=== PATIENT | male | born 1965 | race African-American/Black ===

== ENCOUNTER 2017-03-12 19:04 | Inpatient (IN) | payer OTHER ==
[~2017-03-12 19:04] MED LIST: ISOVUE-370 76%-LOCM 1 ML ONE
[2017-03-12] MEDS ORDERED: Fentanyl 100 MCG/2 ML VIAL ONE ×2 (19:21→19:25)
[2017-03-12] MEDS ORDERED: Midazolam HCl 5 mg/ml Vial ONE (19:27)
[2017-03-12] MEDS ORDERED: Fentanyl 20 MCG/ML 250 ML IVPB SCH (19:35)
[2017-03-12] MEDS ORDERED: Norepinephrine 8 MG/0.9% NS 0 ML ONE (20:00)
[2017-03-12 20:04] LABS: CO2 Tension 44.2 mmHg (35.0-45.0); pH, Arterial 7.24 (7.35-7.45)
[2017-03-12 20:05] LABS: Actual Bicarbonate (HCO3a) 18.3 mEq/L (22-26); Base Excess (BEa) -8.9 mEq/L (0 (+/-) 2.5); Hematocrit-ABG 46.1 % (42.0-52.0); Hemoglobin (Hb) 14.4 g/dL (14.0-18.0)
[2017-03-12 20:06] LABS: INR-International Normal Ratio 1.1; Prothrombin Time 14.4 SEC (12.0-14.7)
[2017-03-12 20:06] LABS: Analyzer IN Cardio ER; Calcium, Ionized 1.1 mmol/L (1.12-1.30); Puncture Site RRA
[2017-03-12 20:07] LABS: PTT 31.3 SEC (22.9-36.1)
[2017-03-12 20:18] LABS: #Eosinphils 0.3 thou/uL (0.0-0.7); #Lymphocytes 1.8 thou/uL (1.20-3.40); #Monocytes 0.2 thou/uL (0.11-0.59); #Neutrophils 9.2 thou/uL (1.40-6.50); %Basophils 0.4 % (0.0-1.0); %Eosinophils 2.4 % (0.0-10.0); %Lymphocytes 15.9 % (21.0-51.0); %Neutrophils 79.3 % (42.0-75.0); Hemoglobin 14.9 g/dL (14.0-18.0); Mean Corpuscular HGB CONC 31.6 g/dL (32.0-36.0); Mean Corpuscular Volume 98.2 fl (80.0-94.0); Mean Platelet Volume 8.1 fL (7.4-10.4); Platelet Count 212 thou/uL (130-400); RBC Distribution Width 13.6 % (11.5-14.5); Red Blood Cell (RBC) Count 4.79 mill/uL (4.70-6.10); White Blood Cell (WBC) Count 11.6 thou/uL (4.8-10.8)
[2017-03-12 20:24] LABS: ALT (SGPT) 42 U/L (8-55); AST (SGOT) 91 U/L (5-34); Albumin 4.2 g/dL (3.5-5.0); Alkaline Phosphatase 91 U/L (40-150); Anion Gap 18 mmol/L (10-20); BUN (Urea Nitrogen) 8 mg/dL (8.4-25.7); Bilirubin, Total 0.3 mg/dL (0.2-1.2); CK (CPK) 271 U/L (30-200); CKMB 4.4 ng/mL (0-6.6); Calc. Creatinine Clearance 0 mL/min (70-130); Calcium 8.3 mg/dL (7.8-10.44); Carbon Dioxide 20 mmol/L (22-29); Chloride 104 mmol/L (98-107); Estimated GFR-MDRD Greater than 90; Glucose 180 mg/dL (70-105); Magnesium 2.6 mg/dL (1.6-2.6); Potassium 3.2 mmol/L (3.5-5.1); Protein, Total 8.2 g/dL (6.0-8.3); Sodium 139 mmol/L (136-145); Troponin I 0.017 ng/mL (< 0.028)
--- NOTE | 2017-03-12 20:45 | RAD ---
CHEST PORTABLE SUPINE: History: 51-year-old male with history of endotracheal tube placement positioning following arrest. FINDINGS: The NG tube has been advanced and is in satisfactory position within the trachea with the tip approxi mately 6 cm from the level of the casey. There is some minimal increased density in the right retroc ardiac region. There is rotation to the right with some slight dextrocardia. This could represent tan e possible infiltrate or atelectasis in the right lower lobe. The left lung is clear. IMPRESSION: Some rotation to the right with some increased density in the right infrahilar region raising concern for some developing right lower lobe atelectasis. Mild dextrocardia. Endotracheal tube has been adva nced in satisfactory location. Unremarkable left chest. POS: [facility]
--- NOTE | 2017-03-12 21:10 | RAD ---
PORTABLE CHEST ONE VIEW: History: 51-year-old male with post right subclavian catheter placement evaluation. FINDINGS: Endotracheal tube in satisfactory location. There is a right subclavian catheter which is somewhat an gulated to the left side, possibly extending into the azygos vein. Heart size is within normal limits . There are some parenchymal change in the right lower lobe, evidence for right lower lobe pneumonia or partial atelectasis. There is no pneumothorax. IMPRESSION: Placement of a right subclavian catheter, the tip of which extends somewhat prominently to the left s sara, possibly within an azygos vein. Possibly pulling the catheter back a cm or so might allow for po sitioning within the superior vena cava. Parenchymal changes in the right lower lobe, evidence for so me right lower lobe pneumonia or partial atelectasis. POS: [facility]
[2017-03-12] MEDS ORDERED: STERILE WATER SLOW IVP SCH (21:30)
[2017-03-12] MEDS ORDERED: AMPICILLIN SLOW IVP SCH (21:30)
[2017-03-12] MEDS ORDERED: SULBACTAM SLOW IVP SCH (21:30)
[2017-03-12] MEDS ORDERED: Sterile Water 10 ML ONE (21:32)
[2017-03-12] MEDS ORDERED: Vecuronium 10 MG VIAL ONE (21:32)
[2017-03-12] MEDS ORDERED: metroNIDAZOLE 500 MG/100 ML BAG ONE (22:34)
[2017-03-12 22:35] LABS: Bilirubin Negative (Negative); Blood, Urine Negative (Negative); Clarity CLEAR (Clear); Glucose, Urine (Dipstick) Negative (Negative); Leukocyte Negative (Negative); Nitrite Negative (Negative); Protein, Urine (Dipstick) Negative (Neg-Trace); Specific Gravity, Urine 1.027 (1.002-1.036); Urobilinogen 0.2 mg/dL (0.2-1.0)
[2017-03-12 22:44] LABS: Amphetamine Not Detected (NotDetected); Barbiturates Screen Not Detected (NotDetected); Benzodiazepine Screen Not Detected (NotDetected); Cocaine Metabolite Screen Not Detected (NotDetected); Medtox Control Line Valid? VALID (VALID); Medtox Reader # READER 1; Methadone Not Detected (NotDetected); Methamphetamine Not Detected (NotDetected); Opiate Screen Not Detected (NotDetected); Oxycodone Screen Not Detected (NotDetected); Phencyclidine (PCP) Not Detected (NotDetected); THC/Cannabinoid Screen Not Detected (NotDetected); Tricyclic Screen Not Detected (NotDetected)
--- NOTE | 2017-03-12 22:48 | CT ---
BRAIN CT SCAN WITHOUT IV CONTRAST: History: 51-year-old male with post arrest foreign body airway obstruction. FINDINGS: There is some motion artifact. There is no evidence of mass or midline shift. No acute hemorrhage. Th ere are sinus mucosal changes. There appears to be a tube which is partially coiled within the pharyn x seen on the most caudal image consistent with a coiled NG tube. IMPRESSION: No mass or bleed or other significant acute intracranial process. Minimal sinus mucosal disease. The NG tube is coiled within the pharynx. POS: [facility]
--- NOTE | 2017-03-12 22:52 | CT ---
CHEST CTA WITH 3D RENDERING: History: 51-year-old male status arrest. History of foreign body in airway. FINDINGS: Endotracheal tube in position. There is a right subclavian catheter, the tip of which extends several cm into the left innominate vein. There is some alveolar parenchymal disease in the right lower lobe possibly representing some pneumonia, aspiration, or some degree of atelectasis. There is no CT evidence for acute PE. There is moderate gas and fluid distension of the stomach. No pleural effusion or pericardial effusion. Minimal pleural based parenchymal changes in the left lower lobe, probably some subsegmental atelectasis. IMPRESSION: No CT evidence for acute pulmonary embolism. Right subclavian catheter tip extends several cm into th e left innominate vein. Right lower lobe parenchymal change, evidence for pneumonia and/or atelectasi s and/or aspiration. Minimal pleural based parenchymal changes in the left base, probably minimal sub segmental atelectasis. POS: [facility]
[2017-03-12] MEDS ORDERED: Propofol 1,000 MG/100 ML VIAL IV ONE (23:06)
--- NOTE | 2017-03-12 23:26 | PDOC.EVN ---
Event Note - Event Note Event Note: [id number] H&P Dictated 1. Lactic acidosis 2. Acute respiratory failure 3. Respiratory arrest 4. Anion gap metabolic acidosis plan: see orders
[2017-03-12] MEDS ORDERED: Magnesium Sulfate 2 GM/100 ML BAG ONE (23:30)
[2017-03-12] MEDS ORDERED: Norepinephrine 8 MG/0.9% NS 250 ML ONE (23:30)
[2017-03-12 23:33] LABS: Troponin I 0.073 ng/mL (< 0.028)
[2017-03-12 23:50] LABS: Lactic Acid 3.3 mmol/L (0.5-2.2)
[2017-03-12] MEDS ORDERED: Acetaminophen 650 MG Suppository PR PRN (23:57)
[2017-03-12] MEDS ORDERED: Ondansetron HCl/PF 4 MG/2 ML Vial IVP PRN (23:57)
[2017-03-12 23:58] LABS: Base Excess-Venous -4.2 mmol/L (-30.0-30.0); Bicarbonate (HCO3v) 23.4 mmol/L (1.0-85.0); CO2 Tension (PvCO2) 51.4 mmHg (41.0-51.0); Calcium, Ionized 1.02 mmol/L (1.12-1.32); Hemoglobin - Calc 15.4 g/dL (12.0-18.0); Lactate 3.46 mmol/L (0.50-2.20); O2 Tension (PvO2) 39.6 mmHg (35.0-45.0); Potassium 3.5 mmol/L (3.4-4.7); pH (Venous) 7.266 (7.35-7.45)
[2017-03-13] MEDS ORDERED: Fentanyl 20 MCG/ML 250 ML IVPB SCH ×2 (00:15→03:37)
[2017-03-13] MEDS ORDERED: Calcium Chloride 1 GM/10 ML Abboject SYRINGE ONE (01:00)
[2017-03-13 01:32] LABS: Troponin I 0.075 ng/mL (< 0.028)
[2017-03-13 02:18] LABS: Troponin I 0.091 ng/mL (< 0.028)
[2017-03-13] MEDS ORDERED: Vecuronium 10 MG VIAL ONE (02:29)
[2017-03-13] MEDS ORDERED: Lorazepam 2 MG/ML VIAL SLOW IVP PRN (03:37)
[2017-03-13] MEDS ORDERED: Morphine 2 MG/ML SYRINGE IVP PRN (03:40)
[2017-03-13] MEDS ORDERED: Acetaminophen 1,000 MG in Premix Bag 1 BAG IVPB PRN (03:45)
[2017-03-13] MEDS ORDERED: Vecuronium 10 MG VIAL IV PRN (03:45)
[2017-03-13] MEDS ORDERED: DO NOT USE PRE-EXISTING LYTE PROTOCOL FS SCH (03:45)
[2017-03-13] MEDS ORDERED: Norepinephrine 8 MG/0.9% NS 250 ML IVPB SCH (03:45)
[2017-03-13] MEDS ORDERED: ALL FLUIDS SHOULD BE DEXTROSE FREE IF POSSIBLE FS SCH (03:45)
[2017-03-13 04:11] VITALS: BMI 21.5
[2017-03-13] MEDS: Piperacillin/Tazobactam 3.375 GM in Sodium Chloride 0.9% 100 ML IVPB SCH ×5 (04:21→22:01)
[2017-03-13] MEDS: Sodium Chloride 0.9% 1,000 ML IV SCH ×2 (04:26→16:59)
[2017-03-13 05:09] LABS: PTT 33.5 SEC (22.9-36.1); Prothrombin Time 13.6 SEC (12.0-14.7)
[2017-03-13 05:20] LABS: Lactic Acid 2.9 mmol/L (0.5-2.2)
[2017-03-13 05:27] LABS: Anion Gap 14 mmol/L (10-20); BUN (Urea Nitrogen) 6 mg/dL (8.4-25.7); Calc. Creatinine Clearance 130 mL/min (70-130); Carbon Dioxide 22 mmol/L (22-29); Chloride 105 mmol/L (98-107); Potassium 3.3 mmol/L (3.5-5.1); Sodium 138 mmol/L (136-145)
--- NOTE | 2017-03-13 05:27 | HP ---
DATE OF ADMISSION: 03/12/2017 CHIEF COMPLAINT: Respiratory failure. HISTORY OF PRESENT ILLNESS: The patient is a 51-year-old male with unknown past medical history. Th ere are no family members at the bedside at this time. The patient was found unresponsive at home an d EMS was called. Upon EMS arrival the patient was want to be respiratory arrest and the patient was found to have meat stuck in the throat so the patient had meat removed and the patient was intubated in the field and taken to the outside ER. From the outside ER the patient was transferred here. Th e patient is currently on the vent support and hypothymia protocol, so not able to get much history. According to the history given by the nurse and the ED physician there is no evidence of any cardiac arrest, there is no evidence of any chest compressions or shocks performed by the EMS. The patient was found to have pulse the entire time. PAST MEDICAL HISTORY: Unavailable. PAST SURGICAL HISTORY: Unavailable. SOCIAL HISTORY: Unavailable as the patient is on the vent support. REVIEW OF SYSTEMS: None available from the patient as he is on ventilator support. FAMILY HISTORY: Unknown, as the patient is on vent support. PHYSICAL EXAMINATION: CONSTITUTIONAL/VITAL SIGNS: At the time examination was performed, blood pressure is 150/100, pulse ox 97% on vent support, heart rate 87. GENERAL: This patient is lethargic, sedated and intubated. HEENT: Pupils sluggish. Ears patent. Nose normal. Positive for ET tube. NECK: Supple. No JVD. CHEST: Right subclavian catheter present. RESPIRATORY: Positive for rhonchi. No crackles. On vent support. CARDIOVASCULAR SYSTEM: S1, S2 present. No murmurs, no rubs, no gallops. Regular rate and rhythm. RESPIRATORY SYSTEM: Positive for rhonchi. GASTROINTESTINAL: Abdomen is soft, nontender, no guarding, no organomegaly, no masses felt. Right-s ided lower abdomen. GENITOURINARY: Positive for Garcia catheter. MUSCULOSKELETAL: No edema. NEURO: Cranial nerve system not able to assess as the patient is on vent support. PSYCHIATRIC: Unable to assess at this time. LABORATORY DATA: At the time of H&P performed; white count 11.6, hemoglobin 14.9, platelet count is 212. PT was 4.4, INR 1.1. Blood gas pH 7.4, pCO2 of 44, pO2 20. Bicarbonate is 18. Chemistries sh owed sodium 132, potassium 3.2, chloride is 104, CO2 of 20, BUN of 18.83, lactic acid 5.7. ASSESSMENT AND PLAN: The patient is a 51-year-old male. 1. Acute respiratory failure. Continue vent support. Plan to admit the patient to the ICU. The ER physician did notify Pulmonary. We will monitor the patient closely. 2. Possible aspiration. Plan to have the patient on broad spectrum antibiotics. Repeat CBC with di fferential and chest x-ray in the a.m. Monitor the patient closely. 3. Rule out ventricular tachycardia. EKG positive for some ST depressions. We will go ahead and co nsult Cardiology to evaluate the patient. We will check serial cardiac enzymes, check 2D echo. The patient is currently on hypothermia protocol. 4. Deep venous thrombosis and gastrointestinal prophylaxis; continue Lovenox and sequential compress ion devices. 5. Hypokalemia. Monitor potassium. Repeat BMP in a.m. Replace potassium per protocol. 6. Lactic acidosis. Monitor closely. Check serial lactic acid levels. 7. Anion gap metabolic acidosis. Monitor bicarbonate level closely. The case was discussed in detail with the patient.
[2017-03-13 05:28] LABS: Calcium 10.2 mg/dL (7.8-10.44); Estimated GFR-MDRD Greater than 90; Glucose 139 mg/dL (70-105); Magnesium 2.3 mg/dL (1.6-2.6); Phosphorus 2.5 mg/dL (2.3-4.7); Troponin I 0.103 ng/mL (< 0.028)
[2017-03-13] MEDS: Propofol 1,000 MG/100 ML VIAL IV PRN ×3 (06:10→23:48)
[2017-03-13 06:50] LABS: Hemoglobin 15.1 g/dL (14.0-18.0); Red Blood Cell (RBC) Count 4.99 mill/uL (4.70-6.10); White Blood Cell (WBC) Count 12.2 thou/uL (4.8-10.8)
[2017-03-13 06:51] LABS: Band 9 % (5-11); Eosinophils 1 % (0-10); Lymphocytes 20 % (21-51); MDiff Complete? YES; Mean Corpuscular HGB CONC 31.2 g/dL (32.0-36.0); Mean Corpuscular Hemoglobin 30.2 pg (27.0-31.0); Mean Platelet Volume 8.6 fL (7.4-10.4); Monocytes 3 % (0-10); Neutrophil 67 % (42-75); Platelet Count 193 thou/uL (130-400); RBC Distribution Width 13.8 % (11.5-14.5)
[2017-03-13 07:48] LABS: Base Excess (BEa) -2.3 mEq/L (0 (+/-) 2.5); CO2 Tension 59.1 mmHg (35.0-45.0); Calcium, Ionized 1.3 mmol/L (1.12-1.30); Hematocrit-ABG 48.3 % (42.0-52.0); Hemoglobin (Hb) 15.2 g/dL (14.0-18.0); O2 Tension (PaO2) 210.4 mmHg (80.0-100.0); pH, Arterial 7.26 (7.35-7.45)
[2017-03-13 07:56] LABS: ALV-art Gradient 75.725 (0-20); Puncture Site RRA
[2017-03-13 08:07] LABS: Troponin I 0.084 ng/mL (< 0.028)
--- NOTE | 2017-03-13 09:22 | PDOC.PN ---
- Subjective Encounter Start Date: 03/13/17 Encounter Start Time: 09:20 Subjective: intubated - Objective Resuscitation Status: Resuscitation Status FULL:Full Resuscitation MAR Reviewed: Yes Vital Signs & Weight: Vital Signs (12 hours) Temp Pulse Resp BP BP Pulse Ox 03/13/17 07:34 61 121/85 03/13/17 07:00 36.3 F L 03/13/17 06:00 34 F L 20 03/13/17 04:00 20 03/13/17 03:40 33.2 F L 56 L 20 156/101 H 03/13/17 03:30 33.2 F L 61 20 98 03/13/17 03:15 33.2 F L 53 L 20 156/101 H 100 Most Recent Monitor Data Heart Rate from ECG 59 NIBP 125/81 NIBP BP-Mean 85 Respiration from ECG 14 SpO2 99 I&O: 03/12/17 03/13/17 03/14/17 06:59 06:59 06:59 Intake Total 472 Output Total 1200 140 Balance -728 -140 Result Diagrams: 03/13/17 04:15 03/13/17 04:15 Phys Exam - Physical Examination Constitutional: NAD pupils pinpoint, dysconjugate eyes Respiratory: clear to auscultation bilateral Cardiovascular: RRR, no significant murmur Gastrointestinal: soft, non-tender, positive bowel sounds Musculoskeletal: no edema Neurological: non-focal Dx/Plan (1) Respiratory arrest Code(s): R09.2 - RESPIRATORY ARREST Status: Acute (2) Lactic acidosis Code(s): E87.2 - ACIDOSIS Status: Acute (3) Encephalopathy acute Code(s): G93.40 - ENCEPHALOPATHY, UNSPECIFIED Status: Acute - Plan ventilation support, discuss with front end software engineer -: will need neuro consult -: expaectant obs/ support * .
[2017-03-13] MEDS: Heparin 5,000 UNITS/ML VIAL SC SCH ×3 (09:42→21:13)
[2017-03-13 10:19] LABS: #Eosinphils 0.1 thou/uL (0.0-0.7); #Lymphocytes 1.3 thou/uL (1.20-3.40); #Monocytes 0.6 thou/uL (0.11-0.59); #Neutrophils 9.1 thou/uL (1.40-6.50); %Basophils 0.3 % (0.0-1.0); %Eosinophils 0.5 % (0.0-10.0); %Lymphocytes 11.5 % (21.0-51.0); %Monocytes 5.2 % (0.0-10.0); %Neutrophils 82.5 % (42.0-75.0); Hemoglobin 14.9 g/dL (14.0-18.0); Mean Corpuscular Hemoglobin 31.2 pg (27.0-31.0); Mean Corpuscular Volume 97.7 fl (80.0-94.0); Platelet Count 189 thou/uL (130-400); RBC Distribution Width 13.7 % (11.5-14.5); Red Blood Cell (RBC) Count 4.77 mill/uL (4.70-6.10)
[2017-03-13 10:27] LABS: Prothrombin Time 13.6 SEC (12.0-14.7)
[2017-03-13 10:30] LABS: Troponin I 0.098 ng/mL (< 0.028)
[2017-03-13 10:34] LABS: Anion Gap 14 mmol/L (10-20); BUN (Urea Nitrogen) 7 mg/dL (8.4-25.7); Calc. Creatinine Clearance 130 mL/min (70-130); Calcium 9.8 mg/dL (7.8-10.44); Carbon Dioxide 23 mmol/L (22-29); Chloride 105 mmol/L (98-107); Estimated GFR-MDRD Greater than 90; Glucose 77 mg/dL (70-105); Magnesium 2.2 mg/dL (1.6-2.6); Phosphorus 4.6 mg/dL (2.3-4.7); Potassium 4.4 mmol/L (3.5-5.1); Sodium 138 mmol/L (136-145)
--- NOTE | 2017-03-13 12:06 | PDOC.PULCN ---
Pulmonology Consult: HPI - Date of Consult Date: 03/13/17 Time: 12:05 - Consult Details Reason for Consult: Acute Respiratory failure Requesting Physician: Lissette Yeager - History of Present Illness HPI: FRANK DE LA FUENTE is a 51 year-old M who was intubated yesterday after choking on a piece of meat. He was put on hypothermia protocol. He is now awake and following commands. Pulmonology Consult: ROS - Review of Systems ROS unobtainable: due to endotracheal tube Pulmonology Consult: [facility] Past Medical History: none - Family History Family history: reviewed and not pertinent - Social History Smoking Status: Unknown if ever smoked Alcohol Use: other (unknown) Drug Use History: none Living Situation: independent Pulmonology Consult: Meds - Medications MAR Reviewed: Yes Medications: Current Medications Acetaminophen (Tylenol) 650 mg DE Q4H PRN PRN Reason: Headache/Fever or Pain Heparin Sodium (Porcine) (Heparin) 5,000 units SC TID [facility] Last Admin: 03/13/17 09:42 Dose: 5,000 units Fentanyl (Fentanyl Cadd) 250 mls @ 0 mls/hr IVPB INF LAURA; Titrate PRN Reason: Protocol Sodium Chloride (Normal Saline 0.9%) 1,000 mls @ 75 mls/hr IV .[id number] [facility] Last Admin: 03/13/17 04:26 Dose: 1,000 mls Norepinephrine Bitartrate (Levophed) 250 mls @ 0 mls/hr IVPB INF LAURA; As Directed PRN Reason: Protocol Acetaminophen 1,000 mg/ Device 100 mls @ 400 mls/hr IVPB Q6H PRN PRN Reason: DURING RE-WARMING: PRN T>98.6F Stop: 03/14/17 03:46 Fentanyl Citrate (Fentanyl Bolus) 250 mls @ 0 mls/hr IVPB PRN PRN; As Directed PRN Reason: Breakthrough pain Stop: 04/12/17 03:37 Piperacillin Sod/Tazobactam (Sod 3.375 gm/ Sodium Chloride) 100 mls @ 200 mls/ hr IVPB 0400,1000,1600,2200 [facility] [place] Last Admin: 03/13/17 09:46 Dose: 100 mls Lorazepam (Ativan) 2 mg SLOW IVP Q2H PRN PRN Reason: Anxiety to achieve Bueno 2-3 Stop: 04/12/17 03:37 Miscellaneous Information (Communication Order-Pharmacy) 1 each FS .CHECK IV FLUIDS LAURA Miscellaneous Information (Communication Order-Pharmacy) 1 each FS .COMMUNICATION LAURA Morphine Sulfate (Morphine) 2 mg IVP Q2H PRN PRN Reason: Breakthrough pain Ondansetron HCl (Zofran) 4 mg IVP Q6H PRN PRN Reason: Nausea/Vomiting Propofol (Diprivan) 1,000 mg IV INF PRN; Protocol PRN Reason: TO ACHIEVE BUENO SCORE 2-3 Stop: 04/12/17 03:37 Last Admin: 03/13/17 09:41 Dose: 1,000 mg Sodium Chloride (Flush - Normal Saline) 10 ml IVF PRN PRN PRN Reason: Saline Flush Vecuronium [place] (Norcuron) 10 mg IV Q30MIN PRN PRN Reason: SHIVERING Last Admin: 03/13/17 09:41 Dose: 10 mg - Allergies Allergies/Adverse Reactions: Allergies Allergy/AdvReac Type Severity Reaction Status Date / Time No Known Allergies Allergy Unverified 03/12/17 19:18 Pulmonology Consult: PE - Physical Exam HEENT: PERRLA, sclera anicteric, oral pharynx no lesions Neck: no nodes, no JVD, full ROM Cardiovascular: RRR, no significant murmur, no rub Respiratory: clear to auscultation anteriorly Gastrointestinal: soft, non-tender, positive bowel sounds Musculoskeletal: no edema, pulses present Neurological: non-focal, normal sensation, moves all 4 limbs Lymphatic: no nodes Skin: no rash, normal turgor Pulmonology Consult: Results - Labs Result Diagrams: 03/13/17 10:00 03/13/17 10:00 Lab results: Laboratory Results WBC 11.0 thou/uL (4.8-10.8) H 03/13/17 10:00 RBC 4.77 mill/uL (4.70-6.10) 03/13/17 10:00 Hgb 14.9 g/dL (14.0-18.0) 03/13/17 10:00 Hct 46.6 % (42.0-52.0) 03/13/17 10:00 POC Venous Hct 45.0 % (36-52) 03/12/17 23:51 MCV 97.7 fl (80.0-94.0) H 03/13/17 10:00 MCH 31.2 pg (27.0-31.0) H 03/13/17 10:00 MCHC 32.0 g/dL (32.0-36.0) 03/13/17 10:00 RDW 13.7 % (11.5-14.5) 03/13/17 10:00 Plt Count 189 thou/uL (130-400) 03/13/17 10:00 MPV 8.0 fL (7.4-10.4) 03/13/17 10:00 Neutrophils % 82.5 % (42.0-75.0) H 03/13/17 10:00 Neutrophils % (Manual) 67 % (42-75) 03/13/17 04:15 Band Neuts % (Manual) 9 % (5-11) 03/13/17 04:15 Lymphocytes % 11.5 % (21.0-51.0) L 03/13/17 10:00 Lymphocytes % (Manual) 20 % (21-51) L 03/13/17 04:15 Monocytes % 5.2 % (0.0-10.0) 03/13/17 10:00 Monocytes % (Manual) 3 % (0-10) 03/13/17 04:15 Eosinophils % 0.5 % (0.0-10.0) 03/13/17 10:00 Eosinophils % (Manual) 1 % (0-10) 03/13/17 04:15 Basophils % 0.3 % (0.0-1.0) 03/13/17 10:00 Neutrophils # 9.1 thou/uL (1.40-6.50) H 03/13/17 10:00 Lymphocytes # 1.3 thou/uL (1.20-3.40) 03/13/17 10:00 Monocytes # 0.6 thou/uL (0.11-0.59) H 03/13/17 10:00 Eosinophils # 0.1 thou/uL (0.0-0.7) 03/13/17 10:00 Basophils # 0.0 thou/uL (0.0-0.2) 03/13/17 10:00 PT 13.6 SEC (12.0-14.7) 03/13/17 10:00 INR 1.0 03/13/17 10:00 APTT 31.0 SEC (22.9-36.1) 03/13/17 10:00 Specimen Type ARTERIAL 03/13/17 03:30 Puncture Site RRA 03/13/17 03:30 Bicarbonate Actual 26.0 mEq/L (22-26) 03/13/17 03:30 POC Bicarbonate Calc 23.4 mmol/L (1.0-85.0) 03/12/17 23:51 ABG pH 7.26 (7.35-7.45) L 03/13/17 03:30 ABG pCO2 59.1 mmHg (35.0-45.0) H 03/13/17 03:30 ABG pO2 210.4 mmHg (80.0-100.0) H 03/13/17 03:30 ABG O2 Sat Calc/Suzy 99.4 % (94.0-100.0) 03/13/17 03:30 ABG O2 Content 21.4 vol% (17.5-23.0) 03/13/17 03:30 ABG Base Excess -2.3 mEq/L (0 (+/-) 2.5) 03/13/17 03:30 ABG Hematocrit 48.3 % (42.0-52.0) 03/13/17 03:30 ABG Hemoglobin 15.2 g/dL (14.0-18.0) 03/13/17 03:30 ABG Oxyhemoglobin 97.7 % (94.0-97.0) H 03/13/17 03:30 ABG Carboxyhemoglobin 1.2 gm% (0.0-3.0) 03/13/17 03:30 ABG Methemoglobin 0.5 gm% (0.0-1.5) 03/13/17 03:30 ABG Deoxyhemoglobin 0.6 % (0.0-5.0) 03/13/17 03:30 Santos Test POSITIVE 03/13/17 03:30 POC VBG pH 7.266 (7.35-7.45) L 03/12/17 23:51 VBG pCO2 51.4 mmHg (41.0-51.0) H 03/12/17 23:51 VBG pO2 39.6 mmHg (35.0-45.0) 03/12/17 23:51 POC VBG CO2 (Calc) 25.0 mmol/L (1.0-85.0) 03/12/17 23:51 POC VBG O2 Sat (Calc) 66.0 % (0.0-100.0) 03/12/17 23:51 POC VBG Hemoglobin Calc 15.4 g/dL (12.0-18.0) 03/12/17 23:51 A-a O2 Gradient 75.725 (0-20) H 03/13/17 03:30 Sodium 140 mmol/L (135-148) 03/13/17 03:30 Potassium 4.6 mmol/L (3.70-5.30) 03/13/17 03:30 Chloride 102 mmol/L (98-106) 03/13/17 03:30 Ionized Calcium 1.3 mmol/L (1.12-1.30) 03/13/17 03:30 Mode of Support SIMV/PSV 03/13/17 03:30 Mechanical Rate 20 min 03/13/17 03:30 Inspired O2 50 % 03/13/17 03:30 Tidal Volume 500 ml 03/13/17 03:30 Pressure Support 10 cmH2O 03/13/17 03:30 PEEP or CPAP 5.0 cmH2O 03/13/17 03:30 POC Venous Sodium 143.0 mmol/L (138-145) 03/12/17 23:51 Sodium 138 mmol/L (136-145) 03/13/17 10:00 POC Venous Potassium 3.5 mmol/L (3.4-4.7) 03/12/17 23:51 Potassium 4.4 mmol/L (3.5-5.1) 03/13/17 10:00 POC Venous Chloride 107.0 mmol/L (98-113) 03/12/17 23:51 Chloride 105 mmol/L (98-107) 03/13/17 10:00 Carbon Dioxide 23 mmol/L (22-29) 03/13/17 10:00 Anion Gap 14 mmol/L (10-20) 03/13/17 10:00 POC Jose Guadalupe Anion Gap Calc 13 mmol/L (-14-95) 03/12/17 23:51 BUN 7 mg/dL (8.4-25.7) L 03/13/17 10:00 Creatinine 0.67 mg/dL (0.6-1.3) 03/13/17 10:00 POC Venous Creatinine 0.64 mg/dL (0.60-1.30) 03/12/17 23:51 POC eGFR Amer Greater than 60 12 23:51 POC eGFR Non-Afric Amer Greater than 60 03/12/17 23:51 Estimated GFR (MDRD) Greater than 90 03/13/17 10:00 Glucose 77 mg/dL (70-105) 03/13/17 10:00 POC Venous Glucose 210.0 mg/dL (70-105) H 03/12/17 23:51 Lactic Acid 2.9 mmol/L (0.5-2.2) H 03/13/17 04:15 POC Venous Lactate 3.46 mmol/L (0.50-2.20) H 03/12/17 23:51 Calcium 9.8 mg/dL (7.8-10.44) 03/13/17 10:00 POC Venous Ion Calcium 1.02 mmol/L (1.12-1.32) L 03/12/17 23:51 Phosphorus 4.6 mg/dL (2.3-4.7) 03/13/17 10:00 Magnesium 2.2 mg/dL (1.6-2.6) 03/13/17 10:00 Total Bilirubin 0.3 mg/dL (0.2-1.2) 03/12/17 19:40 AST 91 U/L (5-34) H 03/12/17 19:40 ALT 42 U/L (8-55) 03/12/17 19:40 Alkaline Phosphatase 91 U/L (40-150) 03/12/17 19:40 Creatine Kinase 271 U/L (30-200) H 03/12/17 19:40 CK-MB (CK-2) 26.0 ng/mL (0-6.6) H* 03/13/17 10:00 Troponin I 0.098 ng/mL (< 0.028) H 03/13/17 10:00 B-Natriuretic Peptide 79.4 pg/mL (0-100) 03/12/17 19:40 Serum Total Protein 8.2 g/dL (6.0-8.3) 03/12/17 19:40 Albumin 4.2 g/dL (3.5-5.0) 03/12/17 19:40 Globulin 4.0 g/dL (2.4-3.5) H 03/12/17 19:40 Albumin/Globulin Ratio 1.1 g/dL (1.2-2.2) L 03/12/17 19:40 Urine Color YELLOW (Yellow) 03/12/17 22:00 Urine Clarity CLEAR (Clear) 03/12/17 22:00 Urine pH 6.0 (5.0-9.0) 03/12/17 22:00 Ur Specific [place] 1.027 (1.002-1.036) 03/12/17 22:00 Urine Protein Negative mg/dL (Neg-Trace) 03/12/17 22:00 Urine Glucose (UA) Negative mg/dL (Negative) 03/12/17 22:00 Urine Ketones Negative mg/dL (Negative) 03/12/17 22:00 Urine Blood Negative (Negative) 03/12/17 22:00 Urine Nitrite Negative (Negative) 03/12/17 22:00 Urine Bilirubin Negative (Negative) 03/12/17 22:00 Urine Urobilinogen 0.2 mg/dL (0.2-1.0) 03/12/17 22:00 Ur Leukocyte Esterase Negative (Negative) 03/12/17 22:00 Urine Opiates Screen Not Detected (NotDetected) 03/12/17 22:00 Ur Oxycodone Screen Not Detected (NotDetected) 03/12/17 22:00 Urine Methadone Screen Not Detected (NotDetected) 03/12/17 22:00 Ur Propoxyphene Screen Not Detected (NotDetected) 03/12/17 22:00 Ur Barbiturates Screen Not Detected (NotDetected) 03/12/17 22:00 Ur Tricyclics Screen Not Detected (NotDetected) 03/12/17 22:00 Ur Phencyclidine Scrn Not Detected (NotDetected) 03/12/17 22:00 Ur Amphetamines Screen Not Detected (NotDetected) 03/12/17 22:00 U Methamphetamines Scrn Not Detected (NotDetected) 03/12/17 22:00 U Benzodiazepines Scrn Not Detected (NotDetected) 03/12/17 22:00 U Cocaine Metab Screen Not Detected (NotDetected) 03/12/17 22:00 U Cannabinoids Screen Not Detected (NotDetected) 03/12/17 22:00 Drug Screen Comment () 03/12/17 22:00 - ABG Interpretation ABG Results: POC Bicarbonate Calc 23.4 mmol/L (1.0-85.0) 03/12/17 23:51 ABG pH 7.26 (7.35-7.45) L 03/13/17 03:30 ABG pCO2 59.1 mmHg (35.0-45.0) H 03/13/17 03:30 ABG O2 Sat Calc/Suzy 99.4 % (94.0-100.0) 03/13/17 03:30 ABG Base Excess -2.3 mEq/L (0 (+/-) 2.5) 03/13/17 03:30 Interpretation: respiratory acidosis - Radiology Interpretation Chest x-ray Status: image reviewed by me Additional comments: RLL infiltrate central line turning back toward left Pulmonology Consult: A/P - Problem (1) Choking due to food in larynx Current Visit: Yes Code(s): T17.320A - FOOD IN LARYNX CAUSING ASPHYXIATION, INITIAL ENCOUNTER Status: Acute (2) Acute respiratory failure with hypercapnia Current Visit: Yes Code(s): J96.02 - ACUTE RESPIRATORY FAILURE WITH HYPERCAPNIA Status: Acute - Time Time: 50% of the time was spent in coordination of care (as documented) at patient's floor/unit and/or counseling patient. Time with Patient: greater than 50 minutes (35 minutes direct CC time) - Plan Plan: Patient now following, therefore begin rewarming wean levophed dc central line once levophed is off adjusted vent rate for respiratory acidosis
[2017-03-13 16:06] LABS: #Eosinphils 0.1 thou/uL (0.0-0.7); #Lymphocytes 1.5 thou/uL (1.20-3.40); #Monocytes 0.7 thou/uL (0.11-0.59); #Neutrophils 8.4 thou/uL (1.40-6.50); %Basophils 0.3 % (0.0-1.0); %Eosinophils 0.9 % (0.0-10.0); %Lymphocytes 14.3 % (21.0-51.0); %Monocytes 6.1 % (0.0-10.0); %Neutrophils 78.4 % (42.0-75.0); Hemoglobin 14.3 g/dL (14.0-18.0); Mean Corpuscular HGB CONC 32.8 g/dL (32.0-36.0); Mean Corpuscular Hemoglobin 31.7 pg (27.0-31.0); Mean Corpuscular Volume 96.6 fl (80.0-94.0); Mean Platelet Volume 8.1 fL (7.4-10.4); Platelet Count 181 thou/uL (130-400); RBC Distribution Width 13.6 % (11.5-14.5); Red Blood Cell (RBC) Count 4.52 mill/uL (4.70-6.10); White Blood Cell (WBC) Count 10.7 thou/uL (4.8-10.8)
[2017-03-13 16:12] LABS: INR-International Normal Ratio 1.1; PTT 34.9 SEC (22.9-36.1); Prothrombin Time 14.2 SEC (12.0-14.7)
[2017-03-13 16:30] LABS: Anion Gap 12 mmol/L (10-20); BUN (Urea Nitrogen) 8 mg/dL (8.4-25.7); Calc. Creatinine Clearance 116 mL/min (70-130); Calcium 8.9 mg/dL (7.8-10.44); Carbon Dioxide 25 mmol/L (22-29); Chloride 104 mmol/L (98-107); Estimated GFR-MDRD Greater than 90; Glucose 83 mg/dL (70-105); Magnesium 1.9 mg/dL (1.6-2.6); Phosphorus 2.6 mg/dL (2.3-4.7); Potassium 3.9 mmol/L (3.5-5.1); Sodium 137 mmol/L (136-145); Troponin I 0.091 ng/mL (< 0.028)
[2017-03-13 16:36] LABS: CKMB 29.3 ng/mL (0-6.6)
[2017-03-13] MEDS: Famotidine/PF 20 mg/2ml Vial SLOW IVP SCH (21:13)
[2017-03-13 22:18] LABS: #Basophils 0.1 thou/uL (0.0-0.2); #Eosinphils 0.2 thou/uL (0.0-0.7); #Lymphocytes 2.1 thou/uL (1.20-3.40); #Monocytes 0.6 thou/uL (0.11-0.59); #Neutrophils 7.7 thou/uL (1.40-6.50); %Basophils 0.8 % (0.0-1.0); %Eosinophils 1.9 % (0.0-10.0); %Lymphocytes 19.7 % (21.0-51.0); %Monocytes 5.3 % (0.0-10.0); %Neutrophils 72.3 % (42.0-75.0); Mean Corpuscular Hemoglobin 32.7 pg (27.0-31.0); Mean Platelet Volume 7.9 fL (7.4-10.4); Platelet Count 175 thou/uL (130-400); RBC Distribution Width 13.5 % (11.5-14.5); Red Blood Cell (RBC) Count 4.27 mill/uL (4.70-6.10); White Blood Cell (WBC) Count 10.6 thou/uL (4.8-10.8)
[2017-03-13 22:26] LABS: INR-International Normal Ratio 1.1; PTT 43.1 SEC (22.9-36.1); Prothrombin Time 14.8 SEC (12.0-14.7)
[2017-03-13 22:39] LABS: Anion Gap 11 mmol/L (10-20); BUN (Urea Nitrogen) 10 mg/dL (8.4-25.7); Calc. Creatinine Clearance 104 mL/min (70-130); Calcium 8.6 mg/dL (7.8-10.44); Carbon Dioxide 26 mmol/L (22-29); Chloride 104 mmol/L (98-107); Estimated GFR-MDRD Greater than 90; Glucose 89 mg/dL (70-105); Magnesium 1.8 mg/dL (1.6-2.6); Phosphorus 2.1 mg/dL (2.3-4.7); Potassium 3.5 mmol/L (3.5-5.1); Sodium 137 mmol/L (136-145)
[2017-03-13 22:45] LABS: Troponin I 0.082 ng/mL (< 0.028)
[2017-03-13 22:46] LABS: Critical Call CKMBM RESULT DECREASING
[2017-03-14] MEDS: Piperacillin/Tazobactam 3.375 GM in Sodium Chloride 0.9% 100 ML IVPB SCH ×4 (05:13→21:27)
[2017-03-14] MEDS: Propofol 1,000 MG/100 ML VIAL IV PRN (05:13)
[2017-03-14] MEDS: Sodium Chloride 0.9% 1,000 ML IV SCH ×2 (05:13→16:09)
[2017-03-14 06:18] LABS: #Basophils 0.1 thou/uL (0.0-0.2); #Eosinphils 0.4 thou/uL (0.0-0.7); #Lymphocytes 2.9 thou/uL (1.20-3.40); #Monocytes 0.7 thou/uL (0.11-0.59); #Neutrophils 7.1 thou/uL (1.40-6.50); %Basophils 1.1 % (0.0-1.0); %Eosinophils 3.2 % (0.0-10.0); %Lymphocytes 25.9 % (21.0-51.0); %Monocytes 5.9 % (0.0-10.0); Hemoglobin 13.2 g/dL (14.0-18.0); Mean Corpuscular HGB CONC 33.3 g/dL (32.0-36.0); Mean Corpuscular Hemoglobin 31.9 pg (27.0-31.0); Mean Corpuscular Volume 95.8 fl (80.0-94.0); Mean Platelet Volume 8.6 fL (7.4-10.4); Platelet Count 182 thou/uL (130-400); RBC Distribution Width 13.4 % (11.5-14.5); Red Blood Cell (RBC) Count 4.15 mill/uL (4.70-6.10); White Blood Cell (WBC) Count 11.1 thou/uL (4.8-10.8)
[2017-03-14 06:37] LABS: Anion Gap 11 mmol/L (10-20); BUN (Urea Nitrogen) 10 mg/dL (8.4-25.7); Calc. Creatinine Clearance 102 mL/min (70-130); Calcium 8.5 mg/dL (7.8-10.44); Carbon Dioxide 26 mmol/L (22-29); Chloride 105 mmol/L (98-107); Estimated GFR-MDRD Greater than 90; Glucose 82 mg/dL (70-105); Potassium 3.3 mmol/L (3.5-5.1); Sodium 139 mmol/L (136-145)
[2017-03-14 08:14] LABS: Actual Bicarbonate (HCO3a) 22.9 mEq/L (22-26); Base Excess (BEa) 0.7 mEq/L (0 (+/-) 2.5); CO2 Tension 29.8 mmHg (35.0-45.0); Calcium, Ionized 1.1 mmol/L (1.12-1.30); Hematocrit-ABG 41.7 % (42.0-52.0); O2 Tension (PaO2) 188.4 mmHg (80.0-100.0)
[2017-03-14 08:15] LABS: Puncture Site RBA
[2017-03-14] MEDS ORDERED: DC Sedation Protocol FS ONE (08:35)
[2017-03-14] MEDS ORDERED: CCU Electrolyte Replacement 1 EACH FS ONE (08:39)
--- NOTE | 2017-03-14 08:46 | RAD ---
SINGLE VIEW CHEST: Date: 03/14/17 COMPARISON: 03/12/17. HISTORY: Ventilated patient with respiratory failure. FINDINGS: Single view of the chest shows normal sized cardiomediastinal silhouette. The endotracheal tube is un changed in position. The central venous catheter has been withdrawn with its tip in the superior vena cava. There is no evidence of consolidation, mass, or pleural effusion. IMPRESSION: 1. No evidence of acute cardiopulmonary process. 2. Appropriate position of lines and tubes. POS: [facility]
[2017-03-14] MEDS ORDERED: Potassium Phosphate 15 MMOL in Sodium Chloride 0.9% 250 ML 250 ML IV PRN (08:57)
[2017-03-14] MEDS ORDERED: Potassium Chloride 20 MEQ TAB PO PRN (08:57)
[2017-03-14] MEDS ORDERED: Magnesium 2 GM/NS 0.9% 100 ML 2 GM in Premix Bag 1 BAG IVPB PRN (08:57)
[2017-03-14] MEDS ORDERED: Potassium Chloride 40 MEQ in Sodium Chloride 0.9% 250 ML 250 ML IVPB PRN (08:57)
[2017-03-14] MEDS ORDERED: Magnesium Oxide 400 MG TAB PO PRN ×2 (08:57)
[2017-03-14] MEDS ORDERED: Potassium Phosphate 9 MMOL in Sodium Chloride 0.9% 100 ML IVPB PRN (08:57)
[2017-03-14] MEDS ORDERED: CCU ELECTROLYTE REPLACEMENT PROTOCOL FS PRN (08:57)
[2017-03-14] MEDS ORDERED: Potassium Phosphate 12 MMOL in Sodium Chloride 0.9% 250 ML 250 ML IV PRN (08:57)
[2017-03-14] MEDS ORDERED: Potassium Chloride 40 MEQ in Premix Bag 1 BAG IVPB PRN (08:57)
--- NOTE | 2017-03-14 08:58 | PRG ---
DATE OF SERVICE: 03/14/2017 Thirty-five minutes critical care time. Mr. Bowser remains intubated on mechanical ventilation. He will wake up when sedation is off and t ry to follow commands. PHYSICAL EXAMINATION: VITAL SIGNS: His temperature is 98.6, pulse 63, blood pressure 92/60, 24 intake 2675, output 1935. HEENT: He has injected sclerae. Pupils react. Oropharynx is clear. NECK: Without adenopathy, JVD, or bruits. LUNGS: Clear to auscultation without wheezing. CARDIAC: S1, S2 regular, without murmur. ABDOMEN: Soft and nontender. EXTREMITIES: No clubbing, cyanosis, or edema. NEUROLOGIC: Grossly intact throughout. LABORATORY DATA: PH 7.50, pCO2 of 29, pO2 188 on SIMV rate 20, tidal volume 500, PEEP 5, pressure mitchell pport 10, FiO2 40%. White blood cell count 11.1, hematocrit 39.8, platelet count 182. Sodium 139, p otassium 3.3, chloride 105, CO2 of 26, BUN 10, creatinine 0.8, glucose 82. Chest x-ray shows no mass , effusion or infiltrate. ASSESSMENT: 1. Choking due to food in larynx. 2. Acute respiratory failure requiring mechanical ventilation. PLAN: The patient will be extubated. His Levophed will be turned off. His potassium will be replac ed. Hopefully, he can be transferred out of the ICU by tomorrow.
--- NOTE | 2017-03-14 09:42 | PDOC.PN ---
- Subjective Encounter Start Date: 03/14/17 Encounter Start Time: 09:41 Subjective: awake , nonverbal - Objective Resuscitation Status: Resuscitation Status FULL:Full Resuscitation MAR Reviewed: Yes Vital Signs & Weight: Vital Signs (12 hours) Temp Pulse Resp Pulse Ox 03/14/17 09:05 105 H 10 L 92 L 03/14/17 08:00 18 03/14/17 07:00 100.9 F H 03/14/17 04:00 98.6 F 25 H 03/14/17 02:00 25 H 03/14/17 00:00 99.9 F H 25 H 03/13/17 22:00 99.2 F 25 H Most Recent Monitor Data Heart Rate from ECG 96 NIBP 115/88 NIBP BP-Mean 95 Respiration from ECG 13 SpO2 98 I&O: 03/13/17 03/14/17 03/15/17 06:59 06:59 06:59 Intake Total 472 2675.2 Output Total 1200 1935 120 Balance -728 740.2 -120 Result Diagrams: 03/14/17 03:57 03/14/17 03:57 Phys Exam - Physical Examination Constitutional: NAD Neck: no JVD Respiratory: clear to auscultation bilateral Cardiovascular: RRR, no significant murmur Gastrointestinal: soft, non-tender Musculoskeletal: no edema Neurological: non-focal Dx/Plan (1) Respiratory arrest Code(s): R09.2 - RESPIRATORY ARREST Status: Acute (2) Lactic acidosis Code(s): E87.2 - ACIDOSIS Status: Acute (3) Encephalopathy acute Code(s): G93.40 - ENCEPHALOPATHY, UNSPECIFIED Status: Acute (4) NSTEMI (non-ST elevated myocardial infarction) Code(s): I21.4 - NON-ST ELEVATION (NSTEMI) MYOCARDIAL INFARCTION Status: Acute - Plan encephalopathy, anoxic? -: off pressors, extubated -: expectant obs, nutrition * .
[2017-03-14] MEDS: Famotidine/PF 20 mg/2ml Vial SLOW IVP SCH ×2 (10:34→21:13)
[2017-03-14] MEDS: Heparin 5,000 UNITS/ML VIAL SC SCH ×3 (10:34→21:13)
[2017-03-14] MEDS ORDERED: FLU VACC QS2017-18 36 mo. & older 0.5 ML SYRINGE IM ONE (21:00)
[2017-03-15] MEDS: Sodium Chloride 0.9% 1,000 ML IV SCH (00:15)
[2017-03-15 01:26] LABS: Magnesium 2.1 mg/dL (1.6-2.6)
[2017-03-15] MEDS: Piperacillin/Tazobactam 3.375 GM in Sodium Chloride 0.9% 100 ML IVPB SCH (03:48)
[2017-03-15 04:52] LABS: Anion Gap 9 mmol/L (10-20); BUN (Urea Nitrogen) 11 mg/dL (8.4-25.7); Calc. Creatinine Clearance 110 mL/min (70-130); Calcium 8.9 mg/dL (7.8-10.44); Carbon Dioxide 28 mmol/L (22-29); Chloride 106 mmol/L (98-107); Estimated GFR-MDRD Greater than 90; Glucose 112 mg/dL (70-105); Potassium 3.8 mmol/L (3.5-5.1); Sodium 139 mmol/L (136-145)
--- NOTE | 2017-03-15 09:14 | PRG ---
DATE OF SERVICE: 03/15/2017 He has made a remarkable improvement since yesterday. He is awake, alert, oriented, moving around wi thout difficulty. PHYSICAL EXAMINATION: VITAL SIGNS: Temperature is 98.8, pulse 77, blood pressure 106/73, 24-hour intake 2906, output 1278. HEENT: Unremarkable. NECK: No JVD. LUNGS: Clear without wheezing. CARDIOVASCULAR: S1, S2 regular. ABDOMEN: Soft and nontender. EXTREMITIES: No clubbing, cyanosis, or edema. NEUROLOGIC: Nonfocal. LABORATORY DATA: Sodium 139, potassium 3.8, chloride 106, CO2 20, BUN 11, creatinine 0.7, glucose 11 2. ASSESSMENT: 1. Status post choking episode. 2. Status post acute respiratory failure requiring mechanical ventilation. 3. Aspiration pneumonitis. 4. Deconditioning. PLAN: The patient can be transferred to the medical floor. We will start physical therapy. Hopeful ly, he can be discharged soon. Speech is evaluating the patient and is making recommendations in reg ards to diet.
[2017-03-15] MEDS: Heparin 5,000 UNITS/ML VIAL SC SCH ×3 (09:19→20:37)
[2017-03-15] MEDS: Amoxicillin/Potassium Clav 500 MG TAB PO SCH ×2 (09:19→20:37)
--- NOTE | 2017-03-15 11:38 | PDOC.PN ---
- Subjective Encounter Start Date: 03/15/17 Encounter Start Time: 11:37 Subjective: awake, alert, appropriate - Objective Resuscitation Status: Resuscitation Status FULL:Full Resuscitation MAR Reviewed: Yes Vital Signs & Weight: Vital Signs (12 hours) Temp Pulse Resp Pulse Ox 03/15/17 10:10 98.8 F 78 22 H 99 03/15/17 08:00 98.8 F 78 22 H 94 L 03/15/17 07:00 98.8 F 03/15/17 04:00 98.8 F 03/15/17 00:00 98.6 F Weight Weight 158 lb 11.725 oz Most Recent Monitor Data Heart Rate from ECG 88 NIBP 119/79 NIBP BP-Mean 89 Respiration from ECG 16 SpO2 91 I&O: 03/14/17 03/15/17 03/16/17 06:59 06:59 06:59 Intake Total 2675.2 2906 580 Output Total 1935 1278 175 Balance 740.2 1628 405 Result Diagrams: 03/14/17 03:57 03/15/17 03:46 Additional Labs: Accuchecks 03/14/17 23:18 POC Glucose 62 L Phys Exam - Physical Examination Constitutional: NAD Neck: no JVD Respiratory: clear to auscultation bilateral Cardiovascular: RRR, no significant murmur Gastrointestinal: soft, positive bowel sounds Musculoskeletal: no edema Neurological: non-focal, moves all 4 limbs Dx/Plan (1) Respiratory arrest Code(s): R09.2 - RESPIRATORY ARREST Status: Resolved (2) Lactic acidosis Code(s): E87.2 - ACIDOSIS Status: Resolved (3) Encephalopathy acute Code(s): G93.40 - ENCEPHALOPATHY, UNSPECIFIED Status: Resolved (4) NSTEMI (non-ST elevated myocardial infarction) Code(s): I21.4 - NON-ST ELEVATION (NSTEMI) MYOCARDIAL INFARCTION Status: Acute - Plan doing well. speech tx, PT,OT -: amazing recovery * .
[2017-03-16 08:10] VITALS: BP 121/82; TEMP 98.6
[2017-03-16] MEDS: Heparin 5,000 UNITS/ML VIAL SC SCH (09:34)
[2017-03-16] MEDS: Amoxicillin/Potassium Clav 500 MG TAB PO SCH (09:34)
--- NOTE | 2017-03-16 10:25 | PRG ---
DATE OF SERVICE: 03/16/2017 SUBJECTIVE: He feels better. He is up walking around, has no complaints. PHYSICAL EXAMINATION: VITAL SIGNS: Temperature 98.6, pulse 70, respiration 16, O2 sat 97%, blood pressure 121/82. HEENT: Unremarkable. NECK: No JVD. CHEST: Clear without wheezing. CARDIAC: S1 and S2 regular. ABDOMEN: Soft. EXTREMITIES: No edema. ASSESSMENT: 1. Status post choking episode. 2. Status post respiratory failure. 3. Aspiration event. PLAN: He has recovered and I think he could go home. Speech has seen him and made recommendations r egarding swallowing. I would stop Augmentin after 7 days. I will sign off. Please recall if furthe r assistance needed.
--- NOTE | 2017-03-16 12:47 | DIS ---
DATE OF ADMISSION: 03/12/2017 DATE OF DISCHARGE: 03/16/2017 Surgical admission for Bev. DISCHARGE DISPOSITION: Home. FINAL DIAGNOSES: Choking due to food and larynx; respiratory arrest; acute encephalopathy, resolved; non-ST elevation myocardial infarction; lactic acidosis, resolved; acute respiratory failure with hy percapnia, resolved. DISCHARGE MEDICATIONS: Augmentin 500, #14, one twice a day for 7 days. ALLERGIES: None. PENDING AT THE TIME OF DISCHARGE: Nothing. CODE STATUS: FULL. HOSPITAL COURSE: The patient admitted to [facility]. [facility] Hospitalist Service found unresponsive at home and found to have meat stuck in his throat. He was intubated after the r emoval of the meat, transferred to [facility] on vent support. Hypothermic protocol. Placed in the intensive care unit. Dr. Keyshawn Rodriguez saw him in consultation. On 03/13/2017, he was awake, follow ing commands mildly. He rapidly progressed and he is now awake and alert. Vital signs are stable. Chest is clear. Heart has regular rate and rhythm. His toxicology was unremarkable. Admitting hemo globin 15.1, white count 12.2, platelet count 193,000. INR was 1.1. Initial blood gas revealed a pH of 7.24 with a 44 CO2, this improved steadily during his hospital stay. Initial comp metabolic prof ile revealed a sodium 138, potassium 3.3, chloride 105, CO2 22, BUN 6, creatinine 0.67. Liver functi on tests are unremarkable. Lactic acid was 2.9. His troponins were modestly elevated at 0.09, 0.1, 0.04. The patient has improved dramatically. As I said before, he is stable. Blood pressure 121/82 , pulse 70, respirations 16. He is alert, oriented, and cooperative. Desires going home. He had no procedures done. Dr. Rodriguez recommended given him 7 more days of amoxicillin as there is no defini te evidence of pneumonia. His chest x-ray done on 03/14/2017 shows a normal cardiac silhouette with no infiltrate. The patient has been told to follow up with his PCP in 1 week. He states he has one in [place], but cannot remember their name.
== END 2017-03-16 13:11 | disposition home or self-care (01) | DRG 208 ==
LOC: ERS 19:04 → CCU 22:39 → ONC 03-15 09:30
PROVIDERS: ADMIT Internal Medicine; ATTEND Internal Medicine
PROC: 5A1945Z Respiratory Ventilation, 24-96 Consecutive Hours (ICD-10-PCS; principal; 2017-03-12)
PROC: 05H433Z Insertion of Infusion Device into Left Innominate Vein, Percutaneous Approach (ICD-10-PCS; 2017-03-12)
DX: J96.02 Acute respiratory failure with hypercapnia (principal); I21.4 Non-ST elevation (NSTEMI) myocardial infarction; J69.0 Pneumonitis due to inhalation of food and vomit; G93.40 Encephalopathy, unspecified; E87.2 Acidosis; T17.320A Food in larynx causing asphyxiation, initial encounter; E87.6 Hypokalemia
CPT/HCPCS: 36415; 36416; 70450; 71010; 71275; 80048; 80306; 82330; 82553; 82803; 82805; 83605; 83735; 83880; 84100; 84484; 85025; 85610; 85730; 90471; 90682; 93005; 93306; 94002; 94003; A4216; G0008; G8978-GP-CL; G8979-GP-CJ; G8996-GN-CJ; G8997-GN-CJ; J0295; J1644; J2060; J2250; J2270; J2543; J2704; J3010; J3475; J3480; J7050; Q2036; S0028

== ENCOUNTER 2019-02-27 22:43 | Inpatient (IN) | payer OTHER ==
[2019-02-28] MEDS ORDERED: Acetaminophen 650 MG Suppository PR PRN (00:27)
[2019-02-28] MEDS ORDERED: Lorazepam 0.5 MG TAB PO PRN (00:55)
[2019-02-28 05:26] VITALS: BMI 22.5
[2019-02-28] MEDS: Sodium Chloride 0.9% 1,000 ML IV SCH ×3 (06:06→18:08)
[2019-02-28] MEDS: Cefepime 2 GM in Sodium Chloride 0.9% 100 ML IVPB SCH ×2 (06:19→16:30)
[2019-02-28 06:39] LABS: Band 15 % (5-11); Hemoglobin 12.9 g/dL (14.0-18.0); Lymphocytes 10 % (21-51); MDiff Complete? YES; Mean Corpuscular HGB CONC 33.1 g/dL (32.0-36.0); Mean Corpuscular Hemoglobin 31.7 pg (27.0-31.0); Mean Corpuscular Volume 95.8 fL (78.0-98.0); Mean Platelet Volume 8.6 fL (7.4-10.4); Monocytes 3 % (0-10); Neutrophil 72 % (42-75); Platelet Count 136 thou/uL (130-400); RBC Distribution Width 13.5 % (11.5-14.5); Red Blood Cell (RBC) Count 4.09 mill/uL (4.70-6.10); White Blood Cell (WBC) Count 12.9 thou/uL (4.8-10.8)
[2019-02-28 06:58] LABS: BUN (Urea Nitrogen) 9 mg/dL (8.4-25.7); Calc. Creatinine Clearance 114 mL/min (70-130); Calcium 8.2 mg/dL (7.8-10.44); Carbon Dioxide 23 mmol/L (22-29); Chloride 107 mmol/L (98-107); Estimated GFR-MDRD Greater than 90; Glucose 81 mg/dL (70-105); Sodium 137 mmol/L (136-145)
[2019-02-28 07:05] LABS: Anion Gap 11 mmol/L (10-20)
[2019-02-28] MEDS: Famotidine 20 MG TAB PO SCH ×2 (08:32→19:48)
[2019-02-28] MEDS: Acetaminophen 325 MG TAB PO PRN ×3 (08:32→18:02)
[2019-02-28] MEDS ORDERED: Cefepime 2 GM in Sodium Chloride 0.9% 100 ML IVPB SCH (17:30)
[2019-02-28 20:18] LABS: Amphetamine Not Detected (NotDetected); Barbiturates Screen Not Detected (NotDetected); Benzodiazepine Screen Not Detected (NotDetected); Cocaine Metabolite Screen Not Detected (NotDetected); Medtox Control Line Valid? VALID (VALID); Medtox Reader # READER 1; Methadone Not Detected (NotDetected); Methamphetamine Not Detected (NotDetected); Opiate Screen Not Detected (NotDetected); Oxycodone Screen Not Detected (NotDetected); Phencyclidine (PCP) Not Detected (NotDetected); THC/Cannabinoid Screen Not Detected (NotDetected); Tricyclic Screen Not Detected (NotDetected)
[2019-02-28] MEDS ORDERED: FLU VACC QS2019-20(6MOS UP)/PF 60 MCG/0.5 ML SYRINGE IM ONE (21:00)
[2019-03-01] MEDS: Cefepime 2 GM in Sodium Chloride 0.9% 100 ML IVPB SCH ×2 (05:40→17:29)
[2019-03-01] MEDS: Sodium Chloride 0.9% 1,000 ML IV SCH ×2 (05:41→17:30)
--- NOTE | 2019-03-01 07:20 | HP ---
CHIEF COMPLAINT: Urinary frequency. HISTORY OF PRESENT ILLNESS: Mr. Hairston is a 53-year-old gentleman with no past medical history, who states he was feeling extremely unwell today while at work. His temperature was checked and he was noted to be afebrile. The patient was seen initially in [place] [facility] and according to the ED reports, he had a change in mental status and that was the reason he was brought in as well as a temperature. The rectal temperature was elevated at 106.1. The patient underwent a chest x-ray that was unremarkable and a CT of the head that showed no acute intracranial abnormalities. He had laboratory studies done, which were notable for a white count of 10.1, hemoglobin 14, hematocrit 45.8, platelets 157, neutrophils 85%. Lactic acid was normal. Total bilirubin slightly bumped at 1.5. AST 14, ALT 15, alkaline phosphatase 66, BNP 128.2, troponin 0.029, albumin 4.4. He underwent urinalysis that showed 30 of protein, 15 of ketones, small amount of blood, positive for nitrites, moderate leukocyte esterase, 21 to 50 white blood cells, and 1+ bacteria. The patient was treated with 4 L of normal saline. He was given cefepime and transferred here for admission for urosepsis. REVIEW OF SYSTEMS: The patient states he has been well in recent days except for noting urinary frequency. He also reports feeling as if he has not been emptying his bladder fully. Denies any abdominal pain. He did not have any fevers prior to today. He has a chronic cough associated with smoking. Denies any purulent sputum. Denies any chest pain, palpitations, or shortness of breath. Denies any bowel changes. All other review of systems are negative. ALLERGIES: NO KNOWN DRUG ALLERGIES. CURRENT MEDICATIONS: None. PAST MEDICAL HISTORY: None. PAST SURGICAL HISTORY: Appendectomy. SOCIAL HISTORY: The patient reports drinking 4-5 beers a day. Denies any illicit drug use. Reports smoking cigarettes, approximately 1 pack per day. PHYSICAL EXAMINATION: GENERAL: The patient appears well developed, well nourished, is in no acute distress. VITAL SIGNS: Temperature 98.9, pulse 80, blood pressure 98/74, respirations 15, O2 saturation 98% on room air. HEENT: Normocephalic and atraumatic. Pupils are equal, round, and reactive to light. Sclerae without icterus. Oropharynx is clear. NECK: Supple. LUNGS: Clear to auscultation bilaterally without wheezes, rales, or rhonchi. CARDIAC: Regular rate and rhythm. ABDOMEN: Soft. Minimal suprapubic discomfort. No guarding or rigidity. No renal angle tenderness. EXTREMITIES: No lower leg swelling or edema. NEUROLOGIC: Alert and oriented x3. SKIN: Warm and dry. INVESTIGATIONS: As mentioned above in HPI. IMPRESSION AND PLAN: Mr. Bowser is a 53-year-old gentleman, who is being admitted for urosepsis. He was started on cefepime at [facility], which we will continue. He has been given 2 L of normal saline. Blood pressure remains on the low side. We will continue with IV fluids. The patient has no comorbidities. We are awaiting urine culture. We will repeat labs in the morning. I have also added on a urine drug screen. The patient reports feeling as if his bladder is not emptying fully. Therefore, I have ordered a postvoid bladder scan. If retaining, he might require a Garcia catheter and further imaging, i.e. a renal ultrasound depending on how much urine he is retaining. For GI prophylaxis, he will be given famotidine 10 mg p.o. b.i.d. DVT prophylaxis with mechanical SCDs and walking program consult. Code status, full. His surrogate decision maker is his , Delym Bowser. The patient's case was discussed with Dr. Romero, who agrees upon care as described above. Job ID: [id number]
[2019-03-01] MEDS: Famotidine 20 MG TAB PO SCH ×2 (09:13→20:20)
[2019-03-01] MEDS: Acetaminophen 325 MG TAB PO PRN ×3 (09:58→23:44)
[2019-03-01 10:31] LABS: #Eosinphils 0.1 thou/uL (0.0-0.7); #Lymphocytes 1.2 thou/uL (1.20-3.40); #Monocytes 0.5 thou/uL (0.11-0.59); #Neutrophils 8.4 thou/uL (1.40-6.50); %Basophils 0.4 % (0.0-1.0); %Eosinophils 1.3 % (0.0-10.0); %Lymphocytes 11.5 % (21.0-51.0); %Monocytes 4.6 % (0.0-10.0); %Neutrophils 82.3 % (42.0-75.0); Hemoglobin 13.1 g/dL (14.0-18.0); Mean Corpuscular HGB CONC 33.4 g/dL (32.0-36.0); Mean Corpuscular Volume 95.7 fL (78.0-98.0); Platelet Count 124 thou/uL (130-400); RBC Distribution Width 13.3 % (11.5-14.5); Red Blood Cell (RBC) Count 4.11 mill/uL (4.70-6.10); White Blood Cell (WBC) Count 10.2 thou/uL (4.8-10.8)
[2019-03-01 10:59] LABS: Anion Gap 6 mmol/L (10-20); BUN (Urea Nitrogen) 4 mg/dL (8.4-25.7); Calc. Creatinine Clearance 116 mL/min (70-130); Calcium 8.5 mg/dL (7.8-10.44); Carbon Dioxide 28 mmol/L (22-29); Chloride 109 mmol/L (98-107); Estimated GFR-MDRD Greater than 90; Glucose 102 mg/dL (70-105); Potassium 3.6 mmol/L (3.5-5.1); Sodium 139 mmol/L (136-145)
--- NOTE | 2019-03-01 15:58 | PDOC.HOSPP ---
- Subjective Encounter Date: 03/01/19 Encounter Time: 07:00 Subjective: Pt seen for followup re: UTI. Feels better. Not ambulating. - Objective Vital Signs & Weight: Vital Signs (12 hours) Temp Pulse Resp BP BP Pulse Ox 03/01/19 10:15 101.3 F H 03/01/19 08:00 80 18 130/76 96 03/01/19 04:00 99.8 F H 83 16 110/72 110/72 94 L Weight Weight 166 lb 3.2 oz I&O: 02/28/19 03/01/19 03/02/19 06:59 06:59 06:59 Output Total 1100 800 Balance -1100 -800 Result Diagrams: 03/01/19 09:52 03/01/19 09:52 Additional Labs: Labs and MARs reviewed by me. Hospitalist ROS - Review of Systems Respiratory: denies: cough, shortness of breath, SOB with excertion, pleuritic pain, wheezing Cardiovascular: denies: chest pain, palpitations, orthopnea, paroxysmal noc. dyspnea, edema, light headedness - Medication Medications: Active Medications Generic Name Dose Route Start Last Admin Trade Name Freq PRN Reason Stop Dose Admin Acetaminophen 650 mg 02/28/19 00:27 03/01/19 15:41 Tylenol PO 650 mg Q4H PRN Administration Headache/Fever/Mild Pain (1-3) Famotidine 20 mg 02/28/19 09:00 03/01/19 09:13 Pepcid PO 20 mg BID LAURA Administration Sodium Chloride 1,000 mls @ 75 mls/hr 02/28/19 00:30 03/01/19 05:41 Normal Saline 0.9% IV 1,000 mls .[id number] LAURA Administration Cefepime HCl 2 gm/ Sodium 100 mls @ 200 mls/hr 02/28/19 05:30 03/01/19 05:40 Chloride IVPB 100 mls 0530,1730 LAURA Administration - Exam General Appearance: NAD Eye: PERRL ENT: normocephalic atraumatic, moist mucosa Neck: supple, no JVD Heart: RRR Respiratory: CTAB, no rales Gastrointestinal: soft, non-tender Skin: no rashes Musculoskeletal: normal tone Psychiatric: normal affect, normal behavior Hosp A/P (1) UTI (urinary tract infection) Status: Acute (2) Tobacco abuse Code(s): Z72.0 - TOBACCO USE Status: Chronic (3) Alcohol dependence, daily use Code(s): F10.20 - ALCOHOL DEPENDENCE, UNCOMPLICATED Status: Chronic - Plan continue antibiotics, PT/OT continue IV cefepime, follow urine culture. Pt counseled re: tobacco and alcohol cessation.
[2019-03-02 04:11] LABS: #Basophils 0.1 thou/uL (0.0-0.2); #Eosinphils 0.2 thou/uL (0.0-0.7); #Lymphocytes 1.1 thou/uL (1.20-3.40); #Monocytes 0.6 thou/uL (0.11-0.59); #Neutrophils 4.8 thou/uL (1.40-6.50); %Basophils 0.8 % (0.0-1.0); %Lymphocytes 15.8 % (21.0-51.0); %Monocytes 8.7 % (0.0-10.0); %Neutrophils 71.7 % (42.0-75.0); Mean Corpuscular HGB CONC 33.5 g/dL (32.0-36.0); Mean Corpuscular Hemoglobin 31.9 pg (27.0-31.0); Mean Corpuscular Volume 95.2 fL (78.0-98.0); Mean Platelet Volume 9.2 fL (7.4-10.4); Platelet Count 124 thou/uL (130-400); RBC Distribution Width 13.4 % (11.5-14.5); Red Blood Cell (RBC) Count 3.75 mill/uL (4.70-6.10); White Blood Cell (WBC) Count 6.7 thou/uL (4.8-10.8)
[2019-03-02 04:25] LABS: Anion Gap 10 mmol/L (10-20); BUN (Urea Nitrogen) 5 mg/dL (8.4-25.7); Calc. Creatinine Clearance 127 mL/min (70-130); Calcium 7.9 mg/dL (7.8-10.44); Carbon Dioxide 23 mmol/L (22-29); Chloride 107 mmol/L (98-107); Estimated GFR-MDRD Greater than 90; Glucose 119 mg/dL (70-105); Potassium 3.6 mmol/L (3.5-5.1); Sodium 136 mmol/L (136-145)
[2019-03-02] MEDS: Cefepime 2 GM in Sodium Chloride 0.9% 100 ML IVPB SCH ×2 (05:17→17:20)
[2019-03-02] MEDS: Sodium Chloride 0.9% 1,000 ML IV SCH ×2 (09:00→20:22)
[2019-03-02] MEDS: Famotidine 20 MG TAB PO SCH ×2 (09:00→20:21)
[2019-03-02] MEDS: Acetaminophen 325 MG TAB PO PRN (12:08)
--- NOTE | 2019-03-02 13:07 | PDOC.HOSPP ---
- Subjective Encounter Date: 03/02/19 Encounter Time: 07:00 Subjective: Pt seen for followup re: UTI. Feels well, no complaints. - Objective Vital Signs & Weight: Vital Signs (12 hours) Temp Pulse Resp BP BP Pulse Ox 03/02/19 11:33 100.2 F H 03/02/19 08:00 98.9 F 64 16 130/87 94 L 03/02/19 04:00 99.3 F 59 L 16 129/78 93 L 03/02/19 02:01 99.0 F Weight Weight 166 lb 3.2 oz I&O: 03/01/19 03/02/19 03/03/19 06:59 06:59 06:59 Intake Total 2810 Output Total 1100 2550 Balance -1100 260 Result Diagrams: 03/02/19 03:53 03/02/19 03:53 Additional Labs: Labs and MARs reviewed by pa Hospitalist ROS - Review of Systems Constitutional: denies: fever, chills, sweats, weakness, malaise Skin: denies: rash, lesions, ken, bruising Neurological: denies: weakness, numbness, incoordination, change in speech, confusion, seizures - Medication Medications: Active Medications Generic Name Dose Route Start Last Admin Trade Name Freq PRN Reason Stop Dose Admin Acetaminophen 650 mg 02/28/19 00:27 03/02/19 12:08 Tylenol PO 650 mg Q4H PRN Administration Headache/Fever/Mild Pain (1-3) Famotidine 20 mg 02/28/19 09:00 03/02/19 09:00 Pepcid PO 20 mg BID LAURA Administration Sodium Chloride 1,000 mls @ 75 mls/hr 02/28/19 00:30 03/02/19 09:00 Normal Saline 0.9% IV 1,000 mls .[id number] LAURA Administration Cefepime HCl 2 gm/ Sodium 100 mls @ 200 mls/hr 02/28/19 05:30 03/02/19 05:17 Chloride IVPB 100 mls 0530,1730 LAURA Administration - Exam General Appearance: NAD Eye: anicteric sclera ENT: moist mucosa Neck: supple Heart: RRR Respiratory: CTAB, no rales Gastrointestinal: soft, non-tender Skin: no rashes Hosp A/P (1) UTI (urinary tract infection) Status: Acute (2) Tobacco abuse Code(s): Z72.0 - TOBACCO USE Status: Chronic (3) Alcohol dependence, daily use Code(s): F10.20 - ALCOHOL DEPENDENCE, UNCOMPLICATED Status: Chronic - Plan continue antibiotics, out of bed/ambulate continue IV cefepime, preliminary urine culture is growing gram negative jamshid. Pt clinically improving.
[2019-03-03] MEDS: Acetaminophen 325 MG TAB PO PRN (00:05)
[2019-03-03 04:58] LABS: #Basophils 0.1 thou/uL (0.0-0.2); #Eosinphils 0.3 thou/uL (0.0-0.7); #Lymphocytes 1.7 thou/uL (1.20-3.40); #Monocytes 0.7 thou/uL (0.11-0.59); #Neutrophils 2.9 thou/uL (1.40-6.50); %Eosinophils 5.5 % (0.0-10.0); %Lymphocytes 30.8 % (21.0-51.0); %Monocytes 11.5 % (0.0-10.0); %Neutrophils 51.2 % (42.0-75.0); Hemoglobin 12.3 g/dL (14.0-18.0); Mean Corpuscular HGB CONC 32.6 g/dL (32.0-36.0); Mean Corpuscular Hemoglobin 31.1 pg (27.0-31.0); Mean Corpuscular Volume 95.3 fL (78.0-98.0); Mean Platelet Volume 8.5 fL (7.4-10.4); Platelet Count 143 thou/uL (130-400); RBC Distribution Width 13.5 % (11.5-14.5); Red Blood Cell (RBC) Count 3.97 mill/uL (4.70-6.10); White Blood Cell (WBC) Count 5.7 thou/uL (4.8-10.8)
[2019-03-03 05:19] LABS: Anion Gap 8 mmol/L (10-20); BUN (Urea Nitrogen) 5 mg/dL (8.4-25.7); Calc. Creatinine Clearance 120 mL/min (70-130); Calcium 8.4 mg/dL (7.8-10.44); Carbon Dioxide 28 mmol/L (22-29); Chloride 106 mmol/L (98-107); Estimated GFR-MDRD Greater than 90; Glucose 95 mg/dL (70-105); Sodium 138 mmol/L (136-145)
[2019-03-03] MEDS: Cefepime 2 GM in Sodium Chloride 0.9% 100 ML IVPB SCH (05:33)
[2019-03-03 08:11] VITALS: BP 140/75
[2019-03-03] MEDS: Famotidine 20 MG TAB PO SCH (08:44)
[2019-03-03] MEDS: Sodium Chloride 0.9% 1,000 ML IV SCH (08:45)
[2019-03-03] MEDS ORDERED: Ciprofloxacin 500 MG TAB PO SCH ×2 (11:15→20:00)
[2019-03-03 14:56] VITALS: TEMP 98.4
--- NOTE | 2019-03-04 08:54 | DIS ---
DATE OF ADMISSION: 02/27/2019 DATE OF DISCHARGE: 03/03/2019 PRIMARY CARE PROVIDER: JARRED [facility] [place]. DISCHARGE DIAGNOSES: 1. Sepsis. 2. Sepsis secondary to urinary tract infection. 3. Thrombocytopenia. CONDITION OF PATIENT ON THE DAY OF DISCHARGE: Stable. I assessed Mr. Bowser on the day of discharge. He denies any chest pain or shortness of breath. Vital signs are stable. S1 and S2 are heard, regular. Lungs are clear to auscultation bilaterally. POST ACUTE CARE FOLLOWUP: With primary care provider in 3 to 5 days. DISCHARGE MEDICATIONS: Ciprofloxacin 500 mg two times a day for 4 more days. HOSPITAL COURSE: Mr. Bowser is a pleasant 53-year-old gentleman, who was admitted to [facility] on February 27, 2019, for sepsis secondary to urinary tract infection. Please refer to Ms. Solorzano's history and physical note dated February 28, 2019, for further details. He improved with intravenous antibiotics. Final urine culture grew gram-negative jamshid, less than 5000 CFU per mL. He has been stepped down to oral antibiotics. At the time of this dictation, preliminary blood cultures are negative, final blood cultures are pending. He is advised to follow up with primary care provider for final blood culture report. On the day of discharge, he has sodium of 138, potassium 4.0, creatinine 0.74, white count 5700, hemoglobin 12.3, and platelet count 143,000. DISCHARGE DESTINATION: Home. DIET: Regular. ACTIVITY: As tolerated. Total amount of time spent coordinating this discharge: 33 minutes. Many thanks for allowing me to participate in your patient's care. Please feel free to contact me with any questions or concerns. Job ID: [id number] [id number]
== END 2019-03-03 15:02 | disposition home or self-care (01) | DRG 872 ==
LOC: ERS 22:43 → ERHOLD 23:56 → ONC 02-28 05:27
PROVIDERS: ADMIT Internal Medicine; ATTEND Internal Medicine
PROC: 3E02340 Introduction of Influenza Vaccine into Muscle, Percutaneous Approach (ICD-10-PCS; principal; 2019-02-28)
PROC: 3E0234Z Introduction of Serum, Toxoid and Vaccine into Muscle, Percutaneous Approach (ICD-10-PCS; 2019-03-01)
DX: A41.59 Other Gram-negative sepsis (principal); N39.0 Urinary tract infection, site not specified; D69.6 Thrombocytopenia, unspecified; F17.200 Nicotine dependence, unspecified, uncomplicated; F10.20 Alcohol dependence, uncomplicated; Z23 Encounter for immunization; Z90.49 Acquired absence of other specified parts of digestive tract
CPT/HCPCS: 36415; 80048; 80306; 85025; 87086; 90471; 90686; 90732; 99285; G0008; G0009; J0692; J3490

== ENCOUNTER 2021-07-17 22:48 | Inpatient (IN) | payer OTHER ==
[2021-07-18] MEDS ORDERED: Ondansetron PF 4 MG/2 ML Vial IVP PRN (01:25)
[2021-07-18] MEDS ORDERED: Acetaminophen 325 MG TAB PO PRN (01:25)
[2021-07-18 04:28] LABS: #Lymphocytes 0.5 thou/uL (1.20-3.40); #Monocytes 0.1 thou/uL (0.11-0.59); #Neutrophils 6.8 thou/uL (1.40-6.50); %Eosinophils 0.2 % (0.0-10.0); %Lymphocytes 6.9 % (21.0-51.0); %Monocytes 1.9 % (0.0-10.0); Hemoglobin 13.5 g/dL (14.0-18.0); Mean Corpuscular HGB CONC 31.8 g/dL (32.0-36.0); Mean Corpuscular Hemoglobin 31.3 pg (27.0-31.0); Mean Corpuscular Volume 98.3 fL (78.0-98.0); Mean Platelet Volume 7.3 fL (7.4-10.4); Platelet Count 330 thou/uL (130-400); RBC Distribution Width 12.2 % (11.5-14.5); Red Blood Cell (RBC) Count 4.33 mill/uL (4.70-6.10); White Blood Cell (WBC) Count 7.5 thou/uL (4.8-10.8)
[2021-07-18 04:46] LABS: ALT (SGPT) 95 U/L (8-55); AST (SGOT) 45 U/L (5-34); Albumin 3.6 g/dL (3.5-5.0); Alkaline Phosphatase 91 U/L (40-110); Anion Gap 11 mmol/L (10-20); BUN (Urea Nitrogen) 11 mg/dL (8.4-25.7); Bilirubin, Total 0.3 mg/dL (0.2-1.2); Calc. Creatinine Clearance 106 mL/min (70-130); Calcium 9.8 mg/dL (7.8-10.44); Carbon Dioxide 32 mmol/L (22-29); Chloride 99 mmol/L (98-107); Globulin 4.6 g/dL (2.4-3.5); Glucose 157 mg/dL (70-105); Magnesium 2.4 mg/dL (1.6-2.6); Potassium 4.2 mmol/L (3.5-5.1); Protein, Total 8.2 g/dL (6.0-8.3); Sodium 138 mmol/L (136-145)
[2021-07-18] MEDS: methylPREDNISolone Sod Succ 40 MG VIAL IVP SCH ×3 (05:13→18:22)
[2021-07-18] MEDS ORDERED: methylPREDNISolone Sod Succ 40 MG VIAL IVP SCH (06:00)
[2021-07-18] MEDS ORDERED: Enoxaparin Sodium 40 MG/0.4 ML SYRINGE SC SCH (09:00)
[2021-07-18] MEDS: Folic Acid 1 MG TAB PO SCH (10:31)
[2021-07-18] MEDS: Thiamine 100 MG TAB PO SCH (10:31)
[2021-07-19] MEDS: methylPREDNISolone Sod Succ 40 MG VIAL IVP SCH ×5 (00:04→23:22)
[2021-07-19 04:23] LABS: #Lymphocytes 0.8 thou/uL (1.20-3.40); #Neutrophils 13.1 thou/uL (1.40-6.50); %Basophils 0.1 % (0.0-1.0); %Eosinophils 0.1 % (0.0-10.0); %Lymphocytes 5.5 % (21.0-51.0); %Monocytes 6.5 % (0.0-10.0); %Neutrophils 87.9 % (42.0-75.0); Hemoglobin 12.8 g/dL (14.0-18.0); Mean Corpuscular HGB CONC 31.4 g/dL (32.0-36.0); Mean Corpuscular Hemoglobin 30.8 pg (27.0-31.0); Mean Corpuscular Volume 98.2 fL (78.0-98.0); Mean Platelet Volume 7.4 fL (7.4-10.4); Platelet Count 311 thou/uL (130-400); RBC Distribution Width 12.1 % (11.5-14.5); Red Blood Cell (RBC) Count 4.17 mill/uL (4.70-6.10); White Blood Cell (WBC) Count 14.9 thou/uL (4.8-10.8)
[2021-07-19 04:50] LABS: ALT (SGPT) 74 U/L (8-55); AST (SGOT) 30 U/L (5-34); Albumin 3.3 g/dL (3.5-5.0); Alkaline Phosphatase 78 U/L (40-110); Anion Gap 11 mmol/L (10-20); BUN (Urea Nitrogen) 10 mg/dL (8.4-25.7); Bilirubin, Total 0.2 mg/dL (0.2-1.2); Calc. Creatinine Clearance 105 mL/min (70-130); Calcium 9.9 mg/dL (7.8-10.44); Carbon Dioxide 32 mmol/L (22-29); Chloride 99 mmol/L (98-107); Globulin 4.2 g/dL (2.4-3.5); Glucose 224 mg/dL (70-105); Magnesium 2.3 mg/dL (1.6-2.6); Potassium 4.3 mmol/L (3.5-5.1); Protein, Total 7.5 g/dL (6.0-8.3); Sodium 138 mmol/L (136-145)
[2021-07-19] MEDS ORDERED: EPINEPHrine 1 MG/ML AMP ONE (06:50)
[2021-07-19] MEDS ORDERED: Bupivacaine PF 0.5% 30 ML VIAL ONE (06:50)
[2021-07-19] MEDS ORDERED: fentaNYL Citrate/PF 100 MCG/2 ML SYRINGE ONE (07:55)
[2021-07-19] MEDS ORDERED: Midazolam HCl 2 mg/2 ml Vial ONE (07:55)
[2021-07-19] MEDS ORDERED: Ketamine 50 MG/ML (10ML VIAL) ONE (07:56)
[2021-07-19] MEDS ORDERED: Lidocaine 2% Jelly 5 ML TUBE ONE (08:01)
[2021-07-19] MEDS: Thiamine 100 MG TAB PO SCH (08:49)
[2021-07-19] MEDS: Folic Acid 1 MG TAB PO SCH (08:49)
[2021-07-19] MEDS ORDERED: Rocuronium Bromide 10 MG/ML (10ML VIAL) ONE (10:00)
[2021-07-19] MEDS ORDERED: PHENYLEPHRINE-NS 100 MCG/ML 10 ML SYRINGE ONE ×2 (10:00→11:13)
[2021-07-19] MEDS ORDERED: ePHEDrine 50 MG/ML VIAL ONE (10:00)
[2021-07-19] MEDS ORDERED: PROPOFOL 200 MG/20 ML VIAL ONE (10:00)
[2021-07-19] MEDS ORDERED: Albumin 5% 500 ML ONE (11:00)
[2021-07-19] MEDS ORDERED: Propofol 1,000 MG/100 ML VIAL IV ONE (11:59)
[2021-07-19] MEDS ORDERED: ceFAZolin 2 GM/Dextrose 50 ML 2 GM in Premix Bag 1 BAG IVPB SCH (12:01)
[2021-07-19] MEDS ORDERED: Norepinephrine 8 MG/0.9% NS 250 ML IVPB PRN (12:01)
[2021-07-19] MEDS ORDERED: Ventilator Sedation Protocol 1 EACH FS SCH (12:01)
[2021-07-19] MEDS: Propofol 1,000 MG/100 ML VIAL IV PRN ×3 (12:05→23:22)
[2021-07-19 12:22] LABS: Actual Bicarbonate (HCO3a) 29.2 mEq/L (22-28); Base Excess (BEa) 3.5 mEq/L (-2.0 to +3.0); CO2 Tension 49.4 mmHg (35.0-45.0); Calcium, Ionized (arterial) 1.27 mmol/L (1.12-1.30); Carboxyhemoglobin (COHb) 0.4 gm% (0.0-3.0); Hemoglobin (Hb) 12.2 g/dL (14.0-18.0); O2 Tension (PaO2), arterial 105.1 mmHg (80.0-100.0); Potassium - ABG Lab 4.03 mmol/L (3.70-5.30); pH, Arterial 7.39 (7.35-7.45)
[2021-07-19 12:23] LABS: Puncture Site Arterial Line
[2021-07-19] MEDS ORDERED: Morphine 2 MG/ML VIAL SLOW IVP PRN (12:30)
[2021-07-19] MEDS ORDERED: Fentanyl BOLUS 250 ML IVPB PRN (12:30)
[2021-07-19] MEDS ORDERED: fentaNYL Citrate-0.9 % NaCl/PF 100 ML IV SCH (12:30)
[2021-07-19] MEDS ORDERED: Propofol BOLUS 1,000 MG/100 ML VIAL IV PRN (12:30)
[2021-07-19] MEDS ORDERED: DISCONTINUE PREVIOUS NARCOTIC PAIN MEDICATIONS AND BENZODIAZEPINES FS SCH (12:30)
[2021-07-19] MEDS ORDERED: ceFAZolin (BATCH) 2 GM in Premix Bag 1 BAG IVPB SCH (12:30)
[2021-07-19] MEDS: Sodium Chloride 0.9% 1,000 ML IV SCH (12:54)
[2021-07-19] MEDS: Lorazepam 2 MG/ML VIAL SLOW IVP PRN ×2 (12:55→21:32)
[2021-07-19] MEDS: Famotidine/PF 20 mg/2ml Vial SLOW IVP SCH (20:41)
[2021-07-20] MEDS: Sodium Chloride 0.9% 1,000 ML IV SCH ×2 (01:00→15:22)
[2021-07-20 04:04] LABS: #Lymphocytes 0.6 thou/uL (1.20-3.40); #Monocytes 0.7 thou/uL (0.11-0.59); #Neutrophils 10.2 thou/uL (1.40-6.50); %Basophils 0.1 % (0.0-1.0); %Lymphocytes 5.5 % (21.0-51.0); %Monocytes 5.8 % (0.0-10.0); %Neutrophils 88.5 % (42.0-75.0); Hemoglobin 11.7 g/dL (14.0-18.0); Mean Corpuscular HGB CONC 32.8 g/dL (32.0-36.0); Mean Corpuscular Hemoglobin 32.1 pg (27.0-31.0); Mean Platelet Volume 7.4 fL (7.4-10.4); Platelet Count 320 thou/uL (130-400); RBC Distribution Width 12.3 % (11.5-14.5); Red Blood Cell (RBC) Count 3.64 mill/uL (4.70-6.10); White Blood Cell (WBC) Count 11.5 thou/uL (4.8-10.8)
[2021-07-20 04:27] LABS: ALT (SGPT) 47 U/L (8-55); AST (SGOT) 16 U/L (5-34); Albumin 3.2 g/dL (3.5-5.0); Alkaline Phosphatase 69 U/L (40-110); Anion Gap 12 mmol/L (10-20); BUN (Urea Nitrogen) 11 mg/dL (8.4-25.7); Bilirubin, Total 0.2 mg/dL (0.2-1.2); Calc. Creatinine Clearance 112 mL/min (70-130); Calcium 10.2 mg/dL (7.8-10.44); Carbon Dioxide 30 mmol/L (22-29); Chloride 99 mmol/L (98-107); Globulin 3.6 g/dL (2.4-3.5); Glucose 142 mg/dL (70-105); Potassium 4.3 mmol/L (3.5-5.1); Protein, Total 6.8 g/dL (6.0-8.3); Sodium 137 mmol/L (136-145)
[2021-07-20] MEDS: methylPREDNISolone Sod Succ 40 MG VIAL IVP SCH ×4 (05:47→22:27)
[2021-07-20] MEDS: Propofol 1,000 MG/100 ML VIAL IV PRN ×3 (05:47→21:17)
[2021-07-20 07:21] LABS: Actual Bicarbonate (HCO3a) 33.2 mEq/L (22-28); Base Excess (BEa) 6.5 mEq/L (-2.0 to +3.0); CO2 Tension 57.6 mmHg (35.0-45.0); Calcium, Ionized (arterial) 1.36 mmol/L (1.12-1.30); Carboxyhemoglobin (COHb) 0.3 gm% (0.0-3.0); Hemoglobin (Hb) 12.3 g/dL (14.0-18.0); O2 Tension (PaO2), arterial 73.7 mmHg (80.0-100.0); Potassium - ABG Lab 4.36 mmol/L (3.70-5.30); pH, Arterial 7.38 (7.35-7.45)
[2021-07-20 07:23] LABS: Puncture Site Arterial Line
[2021-07-20] MEDS: Famotidine/PF 20 mg/2ml Vial SLOW IVP SCH ×2 (09:31→21:17)
[2021-07-20] MEDS: Lorazepam 2 MG/ML VIAL SLOW IVP PRN ×2 (12:32→22:25)
[2021-07-20] MEDS ORDERED: Metoprolol Tartrate 25 MG TAB PO SCH (17:45)
[2021-07-20] MEDS: Metoprolol Tartrate 25 MG TAB PO SCH (21:17)
[2021-07-21] MEDS: Sodium Chloride 0.9% 1,000 ML IV SCH ×2 (04:30→17:36)
[2021-07-21 04:55] LABS: #Lymphocytes 0.5 thou/uL (1.20-3.40); #Monocytes 0.8 thou/uL (0.11-0.59); %Basophils 0.1 % (0.0-1.0); %Lymphocytes 4.3 % (21.0-51.0); %Monocytes 6.7 % (0.0-10.0); %Neutrophils 88.9 % (42.0-75.0); Hemoglobin 11.4 g/dL (14.0-18.0); Mean Corpuscular HGB CONC 31.7 g/dL (32.0-36.0); Mean Corpuscular Hemoglobin 31.1 pg (27.0-31.0); Mean Corpuscular Volume 98.1 fL (78.0-98.0); Mean Platelet Volume 7.2 fL (7.4-10.4); Platelet Count 302 thou/uL (130-400); RBC Distribution Width 12.3 % (11.5-14.5); Red Blood Cell (RBC) Count 3.65 mill/uL (4.70-6.10); White Blood Cell (WBC) Count 12.4 thou/uL (4.8-10.8)
[2021-07-21] MEDS: methylPREDNISolone Sod Succ 40 MG VIAL IVP SCH ×3 (05:12→17:47)
[2021-07-21] MEDS: Propofol 1,000 MG/100 ML VIAL IV PRN ×3 (05:13→18:33)
[2021-07-21 05:54] LABS: ALT (SGPT) 39 U/L (8-55); AST (SGOT) 16 U/L (5-34); Alkaline Phosphatase 67 U/L (40-110); Anion Gap 8 mmol/L (10-20); BUN (Urea Nitrogen) 16 mg/dL (8.4-25.7); Bilirubin, Total 0.3 mg/dL (0.2-1.2); Calc. Creatinine Clearance 123 mL/min (70-130); Carbon Dioxide 32 mmol/L (22-29); Chloride 102 mmol/L (98-107); Globulin 3.5 g/dL (2.4-3.5); Glucose 149 mg/dL (70-105); Potassium 4.2 mmol/L (3.5-5.1); Protein, Total 6.5 g/dL (6.0-8.3); Sodium 138 mmol/L (136-145)
[2021-07-21] MEDS: Lorazepam 2 MG/ML VIAL SLOW IVP PRN ×2 (06:29→15:37)
[2021-07-21 07:04] LABS: Actual Bicarbonate (HCO3a) 31.2 mEq/L (22-28); Base Excess (BEa) 6.3 mEq/L (-2.0 to +3.0); CO2 Tension 46.4 mmHg (35.0-45.0); Calcium, Ionized (arterial) 1.34 mmol/L (1.12-1.30); Carboxyhemoglobin (COHb) 0.4 gm% (0.0-3.0); Hemoglobin (Hb) 12.5 g/dL (14.0-18.0); O2 Tension (PaO2), arterial 69.9 mmHg (80.0-100.0); Potassium - ABG Lab 4.12 mmol/L (3.70-5.30); pH, Arterial 7.45 (7.35-7.45)
[2021-07-21 07:11] LABS: Puncture Site Arterial Line
[2021-07-21] MEDS: Famotidine 20 MG TAB PO SCH ×2 (09:16→20:58)
[2021-07-21] MEDS: Metoprolol Tartrate 25 MG TAB PO SCH ×2 (09:16→20:57)
[2021-07-22] MEDS: methylPREDNISolone Sod Succ 40 MG VIAL IVP SCH ×4 (00:45→20:06)
[2021-07-22] MEDS: Propofol 1,000 MG/100 ML VIAL IV PRN ×3 (02:49→18:42)
[2021-07-22 04:04] LABS: ALT (SGPT) 56 U/L (8-55); AST (SGOT) 43 U/L (5-34); Albumin 2.8 g/dL (3.5-5.0); Alkaline Phosphatase 78 U/L (40-110); Anion Gap 13 mmol/L (10-20); BUN (Urea Nitrogen) 15 mg/dL (8.4-25.7); Bilirubin, Total 0.3 mg/dL (0.2-1.2); Calc. Creatinine Clearance 129 mL/min (70-130); Calcium 9.6 mg/dL (7.8-10.44); Carbon Dioxide 27 mmol/L (22-29); Chloride 103 mmol/L (98-107); Globulin 3.8 g/dL (2.4-3.5); Glucose 151 mg/dL (70-105); Potassium 4.6 mmol/L (3.5-5.1); Protein, Total 6.6 g/dL (6.0-8.3); Sodium 138 mmol/L (136-145)
[2021-07-22 06:18] LABS: #Lymphocytes 0.7 thou/uL (1.20-3.40); #Monocytes 0.8 thou/uL (0.11-0.59); #Neutrophils 11.1 thou/uL (1.40-6.50); %Basophils 0.1 % (0.0-1.0); %Eosinophils 0.1 % (0.0-10.0); %Lymphocytes 5.2 % (21.0-51.0); %Monocytes 6.2 % (0.0-10.0); %Neutrophils 88.4 % (42.0-75.0); Hemoglobin 12.6 g/dL (14.0-18.0); Mean Corpuscular HGB CONC 31.5 g/dL (32.0-36.0); Mean Corpuscular Hemoglobin 31.3 pg (27.0-31.0); Mean Corpuscular Volume 99.3 fL (78.0-98.0); Mean Platelet Volume 7.6 fL (7.4-10.4); Platelet Count 255 thou/uL (130-400); RBC Distribution Width 12.3 % (11.5-14.5); Red Blood Cell (RBC) Count 4.02 mill/uL (4.70-6.10); White Blood Cell (WBC) Count 12.6 thou/uL (4.8-10.8)
[2021-07-22 07:12] LABS: Actual Bicarbonate (HCO3a) 32.6 mEq/L (22-28); CO2 Tension 45.6 mmHg (35.0-45.0); Carboxyhemoglobin (COHb) 0.6 gm% (0.0-3.0); Hemoglobin (Hb) 12.2 g/dL (14.0-18.0); O2 Tension (PaO2), arterial 73.1 mmHg (80.0-100.0); Potassium - ABG Lab 4.32 mmol/L (3.70-5.30); pH, Arterial 7.47 (7.35-7.45)
[2021-07-22 07:18] LABS: Puncture Site RRA
[2021-07-22] MEDS: Sodium Chloride 0.9% 1,000 ML IV SCH (07:36)
[2021-07-22] MEDS: Lorazepam 2 MG/ML VIAL SLOW IVP PRN ×3 (09:00→23:24)
[2021-07-22] MEDS: Enoxaparin Sodium 40 MG/0.4 ML SYRINGE SC SCH (09:01)
[2021-07-22] MEDS: Famotidine 20 MG TAB PO SCH ×2 (09:01→20:06)
[2021-07-22] MEDS: Metoprolol Tartrate 25 MG TAB PO SCH ×2 (09:01→20:07)
[2021-07-23 03:55] LABS: #Lymphocytes 1.8 thou/uL (1.20-3.40); #Monocytes 1.2 thou/uL (0.11-0.59); #Neutrophils 11.6 thou/uL (1.40-6.50); %Basophils 0.3 % (0.0-1.0); %Eosinophils 0.2 % (0.0-10.0); %Lymphocytes 12.1 % (21.0-51.0); %Monocytes 8.4 % (0.0-10.0); Hemoglobin 13.6 g/dL (14.0-18.0); Mean Corpuscular HGB CONC 31.6 g/dL (32.0-36.0); Mean Corpuscular Volume 98.2 fL (78.0-98.0); Mean Platelet Volume 8.9 fL (7.4-10.4); Platelet Count 185 thou/uL (130-400); RBC Distribution Width 12.4 % (11.5-14.5); Red Blood Cell (RBC) Count 4.39 mill/uL (4.70-6.10); White Blood Cell (WBC) Count 14.7 thou/uL (4.8-10.8)
[2021-07-23 06:15] LABS: Albumin 2.7 g/dL (3.5-5.0)
[2021-07-23 06:16] LABS: Chloride 99 mmol/L (98-107); Potassium 4.7 mmol/L (3.5-5.1); Sodium 138 mmol/L (136-145)
[2021-07-23 06:17] LABS: Calcium 9.5 mg/dL (7.8-10.44); Glucose 119 mg/dL (70-105)
[2021-07-23 06:18] LABS: Globulin 3.8 g/dL (2.4-3.5); Protein, Total 6.5 g/dL (6.0-8.3)
[2021-07-23 06:19] LABS: Anion Gap 15 mmol/L (10-20); Bilirubin, Total 0.3 mg/dL (0.2-1.2); Carbon Dioxide 29 mmol/L (22-29)
[2021-07-23 06:20] LABS: Alkaline Phosphatase 90 U/L (40-110)
[2021-07-23 06:21] LABS: Calc. Creatinine Clearance 134 mL/min (70-130)
[2021-07-23 06:22] LABS: BUN (Urea Nitrogen) 16 mg/dL (8.4-25.7)
[2021-07-23 06:23] LABS: ALT (SGPT) 102 U/L (8-55); AST (SGOT) 63 U/L (5-34)
[2021-07-23 07:19] LABS: Actual Bicarbonate (HCO3a) 36.5 mEq/L (22-28); Base Excess (BEa) 12.2 mEq/L (-2.0 to +3.0); CO2 Tension 45.8 mmHg (35.0-45.0); Calcium, Ionized (arterial) 1.24 mmol/L (1.12-1.30); Carboxyhemoglobin (COHb) 0.2 gm% (0.0-3.0); Hemoglobin (Hb) 12.1 g/dL (14.0-18.0); O2 Tension (PaO2), arterial 111.7 mmHg (80.0-100.0); Potassium - ABG Lab 4.47 mmol/L (3.70-5.30); pH, Arterial 7.52 (7.35-7.45)
[2021-07-23 07:20] LABS: Puncture Site LBA
[2021-07-23] MEDS: Metoprolol Tartrate 25 MG TAB PO SCH (08:45)
[2021-07-23] MEDS: Famotidine 20 MG TAB PO SCH (08:46)
[2021-07-23] MEDS: Enoxaparin Sodium 40 MG/0.4 ML SYRINGE SC SCH (08:46)
[2021-07-23] MEDS: methylPREDNISolone Sod Succ 40 MG VIAL IVP SCH (08:46)
[2021-07-23 12:15] VITALS: BMI 19.4
[2021-07-23 14:26] VITALS: TEMP 99.1
[2021-07-23 14:31] VITALS: BP 106/69
[2021-07-23 15:30] LABS: SARS-CoV-2 NAA Rapid Test Not Detected (NotDetected)
== END 2021-07-23 15:49 | disposition short-term general hospital (02) | DRG 166 ==
LOC: MSONC 22:48 → 2NO 07-18 01:50 → CCU 07-19 09:01
PROVIDERS: ADMIT Internal Medicine; ATTEND Internal Medicine
PROC: 0WBC4ZX Excision of Mediastinum, Percutaneous Endoscopic Approach, Diagnostic (ICD-10-PCS; principal; 2021-07-19)
PROC: 0BH17EZ Insertion of Endotracheal Airway into Trachea, Via Natural or Artificial Opening (ICD-10-PCS; 2021-07-19)
PROC: 5A1955Z Respiratory Ventilation, Greater than 96 Consecutive Hours (ICD-10-PCS; 2021-07-19)
DX: C38.1 Malignant neoplasm of anterior mediastinum (principal); J96.01 Acute respiratory failure with hypoxia; I50.22 Chronic systolic (congestive) heart failure; E44.0 Moderate protein-calorie malnutrition; Z68.1 Body mass index [BMI] 19.9 or less, adult; I47.2 Ventricular tachycardia; F10.11 Alcohol abuse, in remission; I95.9 Hypotension, unspecified; Z51.5 Encounter for palliative care; R59.9 Enlarged lymph nodes, unspecified; Z20.822 Contact with and (suspected) exposure to COVID-19; I49.3 Ventricular premature depolarization; J39.8 Other specified diseases of upper respiratory tract; R74.8 Abnormal levels of other serum enzymes; B88.8 Other specified infestations; I11.0 Hypertensive heart disease with heart failure; D64.9 Anemia, unspecified; F17.210 Nicotine dependence, cigarettes, uncomplicated; J98.8 Other specified respiratory disorders; Z91.19 Patient's noncompliance with other medical treatment and regimen; Z90.49 Acquired absence of other specified parts of digestive tract
CPT/HCPCS: 36415; 36600; 71045; 80053; 82805; 83735; 85025; 88305; 88313; 88331; 88334; 88341; 88342; 94002; 94003; 94640; C1776; J0171; J1650; J2060; J2250; J2270; J2704; J2920; J3490; J7050; J7620; P9045; S0020; S0028; U0002

== ENCOUNTER 2021-08-09 11:35 | Inpatient (IN) | payer OTHER ==
[2021-08-09] MEDS ORDERED: Acetaminophen 650 MG Suppository PR PRN (23:55)
[2021-08-09] MEDS ORDERED: Ondansetron ODT 4 MG TAB PO PRN (23:55)
[2021-08-09] MEDS ORDERED: Ondansetron PF 4 MG/2 ML Vial IVP PRN (23:55)
[2021-08-10 04:43] LABS: #Basophils 0.1 thou/uL (0.0-0.2); #Eosinphils 0.1 thou/uL (0.0-0.7); #Lymphocytes 1.8 thou/uL (1.20-3.40); #Monocytes 0.9 thou/uL (0.11-0.59); #Neutrophils 7.4 thou/uL (1.40-6.50); %Basophils 0.6 % (0.0-1.0); %Eosinophils 1.2 % (0.0-10.0); %Lymphocytes 17.4 % (21.0-51.0); %Neutrophils 71.8 % (42.0-75.0); Hemoglobin 11.8 g/dL (14.0-18.0); Mean Corpuscular HGB CONC 32.9 g/dL (32.0-36.0); Mean Corpuscular Hemoglobin 31.8 pg (27.0-31.0); Mean Corpuscular Volume 96.8 fL (78.0-98.0); Mean Platelet Volume 7.4 fL (7.4-10.4); Platelet Count 501 thou/uL (130-400); RBC Distribution Width 12.9 % (11.5-14.5); White Blood Cell (WBC) Count 10.3 thou/uL (4.8-10.8)
[2021-08-10 05:16] LABS: Anion Gap 14 mmol/L (10-20); BUN (Urea Nitrogen) 11 mg/dL (8.4-25.7); Calc. Creatinine Clearance 122 mL/min (70-130); Calcium 11.4 mg/dL (7.8-10.44); Carbon Dioxide 29 mmol/L (22-29); Chloride 97 mmol/L (98-107); Glucose 91 mg/dL (70-105); Potassium 4.2 mmol/L (3.5-5.1); Sodium 136 mmol/L (136-145)
[2021-08-10 08:06] LABS: Bilirubin Negative (Negative); Blood, Urine Negative (Negative); Clarity Turbid (Clear); Glucose, Urine (Dipstick) Normal (Negative); Ketone, Urine Negative (Negative); Leukocyte Negative Leu/uL (Negative); Nitrite Negative (Negative); Protein, Urine (Dipstick) Negative (Neg-Trace); RBC/HPF 0-3 HPF (0-3); Specific Gravity, Urine 1.019 (1.002-1.036); Squamous Epithelial 0-3 HPF (0-3); Urobilinogen Greater than 12 mg/dL (Less than 2); WBC/HPF 0-3 HPF (0-3); pH, Urine 6.5 (5.0-9.0)
[2021-08-10 08:50] LABS: Calcium Oxalate Crystals 2+ HPF (None Seen)
[2021-08-10 08:51] LABS: Bacteria/HPF None Seen HPF (None Seen)
[2021-08-10 08:53] LABS: Urine Culture Reflex No No
[2021-08-10] MEDS: Enoxaparin Sodium 40 MG/0.4 ML SYRINGE SC SCH (09:46)
[2021-08-10] MEDS ORDERED: Amoxicillin/Potassium Clav 600 mg/5 ml Oral Suspension PER TUBE SCH (10:30)
[2021-08-10] MEDS: Amoxicillin/Potassium Clav 600 mg/5 ml Oral Suspension PER TUBE SCH (20:38)
[2021-08-10] MEDS: Acetaminophen 325 MG TAB PO PRN (20:56)
[2021-08-10 22:12] LABS: #Basophils 0.1 thou/uL (0.0-0.2); #Eosinphils 0.1 thou/uL (0.0-0.7); #Lymphocytes 1.6 thou/uL (1.20-3.40); #Neutrophils 7.7 thou/uL (1.40-6.50); %Basophils 0.5 % (0.0-1.0); %Eosinophils 0.7 % (0.0-10.0); %Lymphocytes 15.3 % (21.0-51.0); %Monocytes 9.4 % (0.0-10.0); %Neutrophils 74.2 % (42.0-75.0); Hemoglobin 12.1 g/dL (14.0-18.0); Mean Corpuscular Hemoglobin 31.2 pg (27.0-31.0); Mean Corpuscular Volume 97.3 fL (78.0-98.0); Mean Platelet Volume 7.8 fL (7.4-10.4); Platelet Count 521 thou/uL (130-400); RBC Distribution Width 12.9 % (11.5-14.5); Red Blood Cell (RBC) Count 3.89 mill/uL (4.70-6.10); White Blood Cell (WBC) Count 10.4 thou/uL (4.8-10.8)
[2021-08-10] MEDS ORDERED: Metoprolol Tartrate 5 MG/5 ML VIAL ONE (22:21)
[2021-08-10 22:30] LABS: Phosphorus 3.3 mg/dL (2.3-4.7)
[2021-08-10 22:31] LABS: ALT (SGPT) 59 U/L (8-55); AST (SGOT) 30 U/L (5-34); Albumin 3.5 g/dL (3.5-5.0); Alkaline Phosphatase 212 U/L (40-110); Anion Gap 15 mmol/L (10-20); BUN (Urea Nitrogen) 14 mg/dL (8.4-25.7); Bilirubin, Total 1.2 mg/dL (0.2-1.2); Calc. Creatinine Clearance 108 mL/min (70-130); Carbon Dioxide 30 mmol/L (22-29); Chloride 96 mmol/L (98-107); Globulin 5.6 g/dL (2.4-3.5); Glucose 86 mg/dL (70-105); Magnesium 1.8 mg/dL (1.6-2.6); Potassium 4.4 mmol/L (3.5-5.1); Protein, Total 9.1 g/dL (6.0-8.3); Sodium 137 mmol/L (136-145)
[2021-08-10 22:34] LABS: Calcium 12.9 mg/dL (7.8-10.44)
[2021-08-10] MEDS ORDERED: Metoprolol Tartrate 5 MG/5 ML VIAL IVP PRN (22:53)
[2021-08-10] MEDS ORDERED: Sodium Chloride 0.9% 1,000 ML IV SCH (23:00)
[2021-08-11 04:03] LABS: #Basophils 0.1 thou/uL (0.0-0.2); #Eosinphils 0.1 thou/uL (0.0-0.7); #Lymphocytes 1.5 thou/uL (1.20-3.40); #Monocytes 1.2 thou/uL (0.11-0.59); #Neutrophils 6.7 thou/uL (1.40-6.50); %Basophils 0.9 % (0.0-1.0); %Eosinophils 1.4 % (0.0-10.0); %Lymphocytes 15.5 % (21.0-51.0); %Monocytes 12.2 % (0.0-10.0); %Neutrophils 70.1 % (42.0-75.0); Hemoglobin 11.9 g/dL (14.0-18.0); Mean Corpuscular HGB CONC 32.1 g/dL (32.0-36.0); Mean Corpuscular Hemoglobin 31.1 pg (27.0-31.0); Mean Platelet Volume 8.3 fL (7.4-10.4); Platelet Count 446 thou/uL (130-400); RBC Distribution Width 12.8 % (11.5-14.5); Red Blood Cell (RBC) Count 3.84 mill/uL (4.70-6.10); White Blood Cell (WBC) Count 9.6 thou/uL (4.8-10.8)
[2021-08-11 04:23] LABS: Anion Gap 13 mmol/L (10-20); BUN (Urea Nitrogen) 14 mg/dL (8.4-25.7); Calc. Creatinine Clearance 108 mL/min (70-130); Carbon Dioxide 31 mmol/L (22-29); Chloride 97 mmol/L (98-107); Glucose 86 mg/dL (70-105); Potassium 4.1 mmol/L (3.5-5.1); Sodium 137 mmol/L (136-145)
[2021-08-11] MEDS ORDERED: Zoledronic Acid 4 MG in Sodium Chloride 0.9% 100 ML IVPB SCH (05:00)
[2021-08-11] MEDS: Sodium Chloride 3% (15 ML) NEB NEB SCH ×3 (07:04→19:23)
[2021-08-11] MEDS ORDERED: Sodium Chloride 0.9% 1,000 ML IV SCH (08:33)
[2021-08-11] MEDS: Amoxicillin/Potassium Clav 600 mg/5 ml Oral Suspension PER TUBE SCH ×2 (09:38→22:50)
[2021-08-11] MEDS: Enoxaparin Sodium 40 MG/0.4 ML SYRINGE SC SCH (09:38)
[2021-08-11] MEDS: Sodium Chloride 0.9% 1,000 ML IV SCH ×2 (14:46→23:14)
[2021-08-11] MEDS: Acetaminophen 325 MG TAB PO PRN (23:16)
[2021-08-12] MEDS ORDERED: Sodium Chloride 0.9% 500 ML IV SCH (01:00)
[2021-08-12] MEDS: Sodium Chloride 0.9% 1,000 ML IV SCH ×2 (05:13→18:02)
[2021-08-12 07:23] LABS: #Basophils 0.1 thou/uL (0.0-0.2); #Eosinphils 0.2 thou/uL (0.0-0.7); #Lymphocytes 1.3 thou/uL (1.20-3.40); #Monocytes 1.3 thou/uL (0.11-0.59); #Neutrophils 6.2 thou/uL (1.40-6.50); %Basophils 0.7 % (0.0-1.0); %Eosinophils 2.1 % (0.0-10.0); %Lymphocytes 14.4 % (21.0-51.0); %Monocytes 14.4 % (0.0-10.0); %Neutrophils 68.4 % (42.0-75.0); Hemoglobin 11.3 g/dL (14.0-18.0); Mean Corpuscular HGB CONC 30.3 g/dL (32.0-36.0); Mean Corpuscular Hemoglobin 30.3 pg (27.0-31.0); Mean Corpuscular Volume 99.7 fL (78.0-98.0); Mean Platelet Volume 7.6 fL (7.4-10.4); Platelet Count 441 thou/uL (130-400); RBC Distribution Width 12.7 % (11.5-14.5); Red Blood Cell (RBC) Count 3.74 mill/uL (4.70-6.10); White Blood Cell (WBC) Count 9.1 thou/uL (4.8-10.8)
[2021-08-12] MEDS: Sodium Chloride 3% (15 ML) NEB NEB SCH ×3 (07:24→23:16)
[2021-08-12 07:43] LABS: Anion Gap 14 mmol/L (10-20); BUN (Urea Nitrogen) 13 mg/dL (8.4-25.7); Calc. Creatinine Clearance 115 mL/min (70-130); Calcium 11.1 mg/dL (7.8-10.44); Carbon Dioxide 20 mmol/L (22-29); Chloride 105 mmol/L (98-107); Glucose 128 mg/dL (70-105); Potassium 4.9 mmol/L (3.5-5.1); Sodium 134 mmol/L (136-145)
[2021-08-12] MEDS: Enoxaparin Sodium 30 MG/0.3 ML SYRINGE SC SCH (09:57)
[2021-08-12] MEDS: Amoxicillin/Potassium Clav 600 mg/5 ml Oral Suspension PER TUBE SCH ×2 (09:57→20:52)
[2021-08-12] MEDS: Acetaminophen 325 MG TAB PO PRN (20:51)
[2021-08-13] MEDS: Sodium Chloride 0.9% 1,000 ML IV SCH ×2 (02:44→11:22)
[2021-08-13 05:25] LABS: Anion Gap 10 mmol/L (10-20); BUN (Urea Nitrogen) 10 mg/dL (8.4-25.7); Calc. Creatinine Clearance 127 mL/min (70-130); Calcium 9.8 mg/dL (7.8-10.44); Carbon Dioxide 28 mmol/L (22-29); Chloride 102 mmol/L (98-107); Glucose 118 mg/dL (70-105); Potassium 3.8 mmol/L (3.5-5.1); Sodium 136 mmol/L (136-145)
[2021-08-13 05:48] LABS: Band 3 % (5-11); Eosinophils 3 % (0-10); Hemoglobin 9.8 g/dL (14.0-18.0); Lymphocytes 17 % (21-51); MDiff Complete? YES; Mean Corpuscular HGB CONC 31.3 g/dL (32.0-36.0); Mean Corpuscular Hemoglobin 30.9 pg (27.0-31.0); Mean Corpuscular Volume 98.8 fL (78.0-98.0); Mean Platelet Volume 7.7 fL (7.4-10.4); Monocytes 11 % (0-10); Neutrophil 65 % (42-75); Platelet Count 391 thou/uL (130-400); Platelet Morphology Comment Appears Adequate; RBC Distribution Width 12.6 % (11.5-14.5); RBC Morphology Normal; Red Blood Cell (RBC) Count 3.17 mill/uL (4.70-6.10); White Blood Cell (WBC) Count 7.3 thou/uL (4.8-10.8)
[2021-08-13] MEDS: Sodium Chloride 3% (15 ML) NEB NEB SCH ×3 (07:16→23:04)
[2021-08-13] MEDS: Enoxaparin Sodium 30 MG/0.3 ML SYRINGE SC SCH (10:51)
[2021-08-13] MEDS: Amoxicillin/Potassium Clav 600 mg/5 ml Oral Suspension PER TUBE SCH ×2 (10:57→20:44)
[2021-08-13] MEDS: Scopolamine 1.5 mg/72 hour Patch TD SCH (15:52)
[2021-08-13] MEDS: Acetaminophen 650 MG/20.3 ML UDCUP PO PRN (20:51)
[2021-08-14 04:30] LABS: #Eosinphils 0.2 thou/uL (0.0-0.7); #Lymphocytes 1.4 thou/uL (1.20-3.40); #Monocytes 1.1 thou/uL (0.11-0.59); #Neutrophils 4.9 thou/uL (1.40-6.50); %Eosinophils 2.1 % (0.0-10.0); %Monocytes 14.9 % (0.0-10.0); Hemoglobin 10.8 g/dL (14.0-18.0); Mean Corpuscular HGB CONC 31.3 g/dL (32.0-36.0); Mean Corpuscular Hemoglobin 30.7 pg (27.0-31.0); Mean Platelet Volume 7.5 fL (7.4-10.4); Platelet Count 388 thou/uL (130-400); RBC Distribution Width 12.7 % (11.5-14.5); Red Blood Cell (RBC) Count 3.53 mill/uL (4.70-6.10); White Blood Cell (WBC) Count 7.5 thou/uL (4.8-10.8)
[2021-08-14 04:52] LABS: Anion Gap 10 mmol/L (10-20); BUN (Urea Nitrogen) 8 mg/dL (8.4-25.7); Calc. Creatinine Clearance 129 mL/min (70-130); Calcium 9.4 mg/dL (7.8-10.44); Carbon Dioxide 28 mmol/L (22-29); Chloride 100 mmol/L (98-107); Glucose 114 mg/dL (70-105); Potassium 3.5 mmol/L (3.5-5.1); Sodium 134 mmol/L (136-145)
[2021-08-14] MEDS: Sodium Chloride 3% (15 ML) NEB NEB SCH ×3 (07:23→23:24)
[2021-08-14] MEDS: Enoxaparin Sodium 30 MG/0.3 ML SYRINGE SC SCH (09:06)
[2021-08-14] MEDS: Amoxicillin/Potassium Clav 600 mg/5 ml Oral Suspension PER TUBE SCH ×2 (09:07→21:01)
[2021-08-14] MEDS: Acetaminophen 650 MG/20.3 ML UDCUP PO PRN (21:02)
[2021-08-15] MEDS ORDERED: diphenhydrAMINE 30 GM TUBE TOP PRN (00:04)
[2021-08-15] MEDS: Sodium Chloride 3% (15 ML) NEB NEB SCH ×3 (06:34→22:49)
[2021-08-15] MEDS: Amoxicillin/Potassium Clav 600 mg/5 ml Oral Suspension PER TUBE SCH (09:48)
[2021-08-15] MEDS: Enoxaparin Sodium 30 MG/0.3 ML SYRINGE SC SCH (09:49)
[2021-08-16] MEDS: Acetaminophen 650 MG/20.3 ML UDCUP PO PRN (00:07)
[2021-08-16 04:30] LABS: Anion Gap 13 mmol/L (10-20); BUN (Urea Nitrogen) 8 mg/dL (8.4-25.7); Calc. Creatinine Clearance 143 mL/min (70-130); Calcium 8.8 mg/dL (7.8-10.44); Carbon Dioxide 29 mmol/L (22-29); Chloride 98 mmol/L (98-107); Glucose 113 mg/dL (70-105); Potassium 3.6 mmol/L (3.5-5.1); Sodium 136 mmol/L (136-145)
[2021-08-16] MEDS: Sodium Chloride 3% (15 ML) NEB NEB SCH ×3 (06:49→18:47)
[2021-08-16] MEDS: Enoxaparin Sodium 40 MG/0.4 ML SYRINGE SC SCH (09:40)
[2021-08-16] MEDS: Scopolamine 1.5 mg/72 hour Patch TD SCH (14:08)
[2021-08-16] MEDS: Famotidine/PF 20 mg/2ml Vial SLOW IVP SCH (21:18)
[2021-08-17] MEDS: Sodium Chloride 3% (15 ML) NEB NEB SCH ×3 (07:18→19:45)
[2021-08-17] MEDS: Famotidine/PF 20 mg/2ml Vial SLOW IVP SCH ×2 (10:19→21:41)
[2021-08-17] MEDS: Enoxaparin Sodium 40 MG/0.4 ML SYRINGE SC SCH (10:19)
[2021-08-17] MEDS ORDERED: Glycopyrrolate 0.2 MG/ML 5 ML SYRINGE SLOW IVP SCH (12:50)
[2021-08-17] MEDS: Acetaminophen 650 MG/20.3 ML UDCUP PO PRN (18:01)
[2021-08-18] MEDS: Sodium Chloride 3% (15 ML) NEB NEB SCH ×3 (06:40→23:09)
[2021-08-18] MEDS ORDERED: Bisacodyl 10 MG SUPP PR PRN (07:55)
[2021-08-18] MEDS ORDERED: hydrALAZINE 20 MG/ML VIAL SLOW IVP PRN (07:55)
[2021-08-18] MEDS ORDERED: Senokot S 8.6-50 MG TAB PER TUBE PRN (07:55)
[2021-08-18] MEDS ORDERED: Sodium Chloride 0.65% Nasal 44 ML BOT EA NARE PRN (07:55)
[2021-08-18] MEDS ORDERED: Moisturizing Cream (Eucerin) 113 GM JAR TOP PRN (07:55)
[2021-08-18] MEDS ORDERED: Acetaminophen 500 MG TAB PER TUBE PRN (07:55)
[2021-08-18] MEDS ORDERED: Loperamide HCl 2 MG CAP PER TUBE PRN (07:55)
[2021-08-18] MEDS ORDERED: Cepastat Lozenges 1 LOZ PO PRN (07:55)
[2021-08-18] MEDS ORDERED: Artificial Tear Sol 15 ML BOT EA EYE PRN (07:55)
[2021-08-18] MEDS ORDERED: Acetaminophen 650 MG/20.3 ML UDCUP PER TUBE PRN (08:01)
[2021-08-18] MEDS: Enoxaparin Sodium 40 MG/0.4 ML SYRINGE SC SCH (10:11)
[2021-08-18] MEDS: Famotidine/PF 20 mg/2ml Vial SLOW IVP SCH ×2 (10:11→21:53)
[2021-08-19 04:29] LABS: #Basophils 0.1 thou/uL (0.0-0.2); #Eosinphils 0.2 thou/uL (0.0-0.7); #Lymphocytes 1.9 thou/uL (1.20-3.40); #Monocytes 1.7 thou/uL (0.11-0.59); #Neutrophils 10.1 thou/uL (1.40-6.50); %Basophils 0.4 % (0.0-1.0); %Eosinophils 1.1 % (0.0-10.0); %Lymphocytes 13.9 % (21.0-51.0); %Monocytes 12.3 % (0.0-10.0); %Neutrophils 72.3 % (42.0-75.0); Hemoglobin 11.5 g/dL (14.0-18.0); Mean Corpuscular HGB CONC 32.4 g/dL (32.0-36.0); Mean Corpuscular Hemoglobin 30.9 pg (27.0-31.0); Mean Corpuscular Volume 95.3 fL (78.0-98.0); Mean Platelet Volume 7.5 fL (7.4-10.4); Platelet Count 535 thou/uL (130-400); RBC Distribution Width 12.7 % (11.5-14.5); Red Blood Cell (RBC) Count 3.71 mill/uL (4.70-6.10); White Blood Cell (WBC) Count 13.9 thou/uL (4.8-10.8)
[2021-08-19 04:48] LABS: Anion Gap 12 mmol/L (10-20); BUN (Urea Nitrogen) 12 mg/dL (8.4-25.7); Calc. Creatinine Clearance 134 mL/min (70-130); Calcium 8.6 mg/dL (7.8-10.44); Carbon Dioxide 27 mmol/L (22-29); Chloride 98 mmol/L (98-107); Glucose 121 mg/dL (70-105); Magnesium 2.4 mg/dL (1.6-2.6); Phosphorus 3.2 mg/dL (2.3-4.7); Potassium 4.3 mmol/L (3.5-5.1); Sodium 133 mmol/L (136-145)
[2021-08-19] MEDS: Sodium Chloride 3% (15 ML) NEB NEB SCH ×3 (07:36→23:13)
[2021-08-19] MEDS: Enoxaparin Sodium 40 MG/0.4 ML SYRINGE SC SCH (09:21)
[2021-08-19] MEDS: Famotidine/PF 20 mg/2ml Vial SLOW IVP SCH ×2 (09:21→20:28)
[2021-08-19] MEDS: Scopolamine 1.5 mg/72 hour Patch TD SCH (15:05)
[2021-08-20] MEDS: Sodium Chloride 3% (15 ML) NEB NEB SCH ×3 (06:42→21:57)
[2021-08-20] MEDS: Famotidine/PF 20 mg/2ml Vial SLOW IVP SCH (10:08)
[2021-08-20] MEDS: Enoxaparin Sodium 40 MG/0.4 ML SYRINGE SC SCH (10:08)
[2021-08-20] MEDS: Famotidine 40 MG/4 ML VIAL SLOW IVP SCH (19:52)
[2021-08-21] MEDS: Sodium Chloride 3% (15 ML) NEB NEB SCH ×3 (07:20→22:02)
[2021-08-21] MEDS: Enoxaparin Sodium 40 MG/0.4 ML SYRINGE SC SCH (10:22)
[2021-08-21] MEDS: Sodium Chloride 0.9% 1,000 ML IV SCH (11:43)
[2021-08-21] MEDS: Famotidine 40 MG/4 ML VIAL SLOW IVP SCH ×2 (13:01→21:51)
[2021-08-22] MEDS: Sodium Chloride 0.9% 1,000 ML IV SCH ×2 (02:03→15:59)
[2021-08-22 04:59] LABS: #Basophils 0.1 thou/uL (0.0-0.2); #Eosinphils 0.1 thou/uL (0.0-0.7); #Lymphocytes 1.6 thou/uL (1.20-3.40); #Monocytes 1.1 thou/uL (0.11-0.59); #Neutrophils 9.2 thou/uL (1.40-6.50); %Basophils 0.8 % (0.0-1.0); %Eosinophils 0.9 % (0.0-10.0); %Lymphocytes 12.9 % (21.0-51.0); %Monocytes 8.9 % (0.0-10.0); %Neutrophils 76.5 % (42.0-75.0); Hemoglobin 10.5 g/dL (14.0-18.0); Mean Corpuscular HGB CONC 32.2 g/dL (32.0-36.0); Mean Corpuscular Hemoglobin 30.6 pg (27.0-31.0); Mean Corpuscular Volume 95.1 fL (78.0-98.0); Mean Platelet Volume 7.5 fL (7.4-10.4); Platelet Count 457 thou/uL (130-400); RBC Distribution Width 12.6 % (11.5-14.5); Red Blood Cell (RBC) Count 3.42 mill/uL (4.70-6.10); White Blood Cell (WBC) Count 12.1 thou/uL (4.8-10.8)
[2021-08-22 05:09] LABS: Anion Gap 11 mmol/L (10-20); BUN (Urea Nitrogen) 12 mg/dL (8.4-25.7); Calc. Creatinine Clearance 135 mL/min (70-130); Calcium 8.3 mg/dL (7.8-10.44); Carbon Dioxide 29 mmol/L (22-29); Chloride 98 mmol/L (98-107); Glucose 125 mg/dL (70-105); Magnesium 2.4 mg/dL (1.6-2.6); Phosphorus 2.7 mg/dL (2.3-4.7); Potassium 4.2 mmol/L (3.5-5.1); Sodium 134 mmol/L (136-145)
[2021-08-22] MEDS: Sodium Chloride 3% (15 ML) NEB NEB SCH ×2 (07:10→14:01)
[2021-08-22] MEDS ORDERED: Ondansetron ODT 4 MG TAB SL PRN (08:06)
[2021-08-22] MEDS: Cefepime 1 GM in Sodium Chloride 0.9% 100 ML IVPB SCH ×2 (10:19→20:59)
[2021-08-22] MEDS: Famotidine 40 MG/4 ML VIAL SLOW IVP SCH ×3 (10:19→21:14)
[2021-08-22] MEDS: Enoxaparin Sodium 40 MG/0.4 ML SYRINGE SC SCH (10:19)
[2021-08-22] MEDS: Scopolamine 1.5 mg/72 hour Patch TD SCH (15:59)
[2021-08-22 18:43] LABS: Bilirubin Negative (Negative); Blood, Urine Negative (Negative); Clarity Clear (Clear); Glucose, Urine (Dipstick) Normal (Negative); Ketone, Urine Negative (Negative); Leukocyte Negative Leu/uL (Negative); Nitrite Negative (Negative); Protein, Urine (Dipstick) 10 mg/dL (Neg-Trace); Specific Gravity, Urine 1.021 (1.002-1.036); Urobilinogen 3 mg/dL (Less than 2)
[2021-08-23] MEDS: Sodium Chloride 3% (15 ML) NEB NEB SCH ×3 (01:49→14:00)
[2021-08-23] MEDS: Sodium Chloride 0.9% 1,000 ML IV SCH ×2 (03:54→16:43)
[2021-08-23 05:17] LABS: #Basophils 0.1 thou/uL (0.0-0.2); #Eosinphils 0.1 thou/uL (0.0-0.7); #Lymphocytes 1.6 thou/uL (1.20-3.40); #Neutrophils 9.9 thou/uL (1.40-6.50); %Basophils 0.5 % (0.0-1.0); %Eosinophils 0.9 % (0.0-10.0); %Lymphocytes 12.4 % (21.0-51.0); %Neutrophils 78.2 % (42.0-75.0); Hemoglobin 10.5 g/dL (14.0-18.0); Mean Corpuscular HGB CONC 31.4 g/dL (32.0-36.0); Mean Corpuscular Volume 95.4 fL (78.0-98.0); Mean Platelet Volume 7.6 fL (7.4-10.4); Platelet Count 469 thou/uL (130-400); RBC Distribution Width 12.5 % (11.5-14.5); Red Blood Cell (RBC) Count 3.51 mill/uL (4.70-6.10); White Blood Cell (WBC) Count 12.7 thou/uL (4.8-10.8)
[2021-08-23 05:40] LABS: Anion Gap 11 mmol/L (10-20); BUN (Urea Nitrogen) 10 mg/dL (8.4-25.7); Calc. Creatinine Clearance 126 mL/min (70-130); Calcium 8.5 mg/dL (7.8-10.44); Carbon Dioxide 26 mmol/L (22-29); Chloride 100 mmol/L (98-107); Glucose 117 mg/dL (70-105); Potassium 4.1 mmol/L (3.5-5.1); Sodium 133 mmol/L (136-145)
[2021-08-23] MEDS: Cefepime 1 GM in Sodium Chloride 0.9% 100 ML IVPB SCH ×2 (09:25→20:57)
[2021-08-23] MEDS: Enoxaparin Sodium 40 MG/0.4 ML SYRINGE SC SCH (09:25)
[2021-08-23] MEDS: Famotidine 40 MG/4 ML VIAL SLOW IVP SCH ×2 (09:26→20:56)
[2021-08-24] MEDS: Sodium Chloride 0.9% 1,000 ML IV SCH ×2 (05:47→21:24)
[2021-08-24] MEDS: Sodium Chloride 3% (15 ML) NEB NEB SCH ×2 (07:12→14:29)
[2021-08-24] MEDS: Cefepime 1 GM in Sodium Chloride 0.9% 100 ML IVPB SCH ×2 (10:10→21:24)
[2021-08-24] MEDS: Enoxaparin Sodium 40 MG/0.4 ML SYRINGE SC SCH (10:11)
[2021-08-24 11:31] VITALS: BMI 18.1
[2021-08-24] MEDS: Famotidine 40 MG/4 ML VIAL SLOW IVP SCH ×2 (14:36→21:25)
[2021-08-25] MEDS: Sodium Chloride 3% (15 ML) NEB NEB SCH ×4 (00:43→19:10)
[2021-08-25] MEDS: Cefepime 1 GM in Sodium Chloride 0.9% 100 ML IVPB SCH ×2 (09:07→21:10)
[2021-08-25] MEDS: Enoxaparin Sodium 40 MG/0.4 ML SYRINGE SC SCH (09:08)
[2021-08-25] MEDS: Famotidine 40 MG/4 ML VIAL SLOW IVP SCH ×2 (13:13→21:11)
[2021-08-25] MEDS: Sodium Chloride 0.9% 1,000 ML IV SCH ×2 (13:13→21:19)
[2021-08-25] MEDS: Scopolamine 1.5 mg/72 hour Patch TD SCH (13:21)
[2021-08-26 04:31] LABS: #Basophils 0.1 thou/uL (0.0-0.2); #Eosinphils 0.2 thou/uL (0.0-0.7); #Lymphocytes 1.1 thou/uL (1.20-3.40); #Monocytes 0.8 thou/uL (0.11-0.59); #Neutrophils 6.9 thou/uL (1.40-6.50); %Basophils 0.7 % (0.0-1.0); %Lymphocytes 12.1 % (21.0-51.0); %Neutrophils 76.2 % (42.0-75.0); Hemoglobin 9.8 g/dL (14.0-18.0); Mean Corpuscular HGB CONC 32.2 g/dL (32.0-36.0); Mean Corpuscular Hemoglobin 30.5 pg (27.0-31.0); Mean Corpuscular Volume 94.6 fL (78.0-98.0); Mean Platelet Volume 7.2 fL (7.4-10.4); Platelet Count 416 thou/uL (130-400); RBC Distribution Width 12.6 % (11.5-14.5); Red Blood Cell (RBC) Count 3.22 mill/uL (4.70-6.10)
[2021-08-26 04:49] LABS: Anion Gap 11 mmol/L (10-20); BUN (Urea Nitrogen) 8 mg/dL (8.4-25.7); Calc. Creatinine Clearance 148 mL/min (70-130); Calcium 8.5 mg/dL (7.8-10.44); Carbon Dioxide 27 mmol/L (22-29); Chloride 102 mmol/L (98-107); Glucose 105 mg/dL (70-105); Potassium 4.2 mmol/L (3.5-5.1); Sodium 136 mmol/L (136-145)
[2021-08-26] MEDS: Sodium Chloride 0.9% 1,000 ML IV SCH (06:02)
[2021-08-26] MEDS: Sodium Chloride 3% (15 ML) NEB NEB SCH ×3 (07:41→23:07)
[2021-08-26] MEDS: Famotidine 40 MG/4 ML VIAL SLOW IVP SCH ×2 (09:00→21:45)
[2021-08-26] MEDS: Cefepime 1 GM in Sodium Chloride 0.9% 100 ML IVPB SCH ×2 (09:39→21:45)
[2021-08-26] MEDS: Enoxaparin Sodium 40 MG/0.4 ML SYRINGE SC SCH (09:40)
[2021-08-27] MEDS: Sodium Chloride 0.9% 1,000 ML IV SCH ×3 (01:00→17:34)
[2021-08-27] MEDS: Sodium Chloride 3% (15 ML) NEB NEB SCH ×2 (06:45→14:41)
[2021-08-27] MEDS: Famotidine 40 MG/4 ML VIAL SLOW IVP SCH ×2 (09:54→21:40)
[2021-08-27] MEDS: Enoxaparin Sodium 40 MG/0.4 ML SYRINGE SC SCH (09:54)
[2021-08-27] MEDS: Cefepime 1 GM in Sodium Chloride 0.9% 100 ML IVPB SCH ×2 (09:54→21:39)
[2021-08-28] MEDS: Sodium Chloride 3% (15 ML) NEB NEB SCH ×4 (01:46→23:12)
[2021-08-28] MEDS: Sodium Chloride 0.9% 1,000 ML IV SCH ×2 (06:26→17:59)
[2021-08-28] MEDS: Cefepime 1 GM in Sodium Chloride 0.9% 100 ML IVPB SCH ×2 (12:07→22:29)
[2021-08-28] MEDS: Enoxaparin Sodium 40 MG/0.4 ML SYRINGE SC SCH (12:08)
[2021-08-28] MEDS: Famotidine 40 MG/4 ML VIAL SLOW IVP SCH ×2 (13:08→22:29)
[2021-08-28] MEDS: Scopolamine 1.5 mg/72 hour Patch TD SCH (15:24)
[2021-08-29 06:54] LABS: #Eosinphils 0.3 thou/uL (0.0-0.7); #Lymphocytes 0.9 thou/uL (1.20-3.40); #Monocytes 0.7 thou/uL (0.11-0.59); #Neutrophils 5.3 thou/uL (1.40-6.50); %Basophils 0.6 % (0.0-1.0); %Monocytes 9.9 % (0.0-10.0); %Neutrophils 72.5 % (42.0-75.0); Hemoglobin 9.5 g/dL (14.0-18.0); Mean Corpuscular HGB CONC 32.4 g/dL (32.0-36.0); Mean Corpuscular Hemoglobin 30.8 pg (27.0-31.0); Mean Corpuscular Volume 95.1 fL (78.0-98.0); Mean Platelet Volume 7.9 fL (7.4-10.4); Platelet Count 364 thou/uL (130-400); White Blood Cell (WBC) Count 7.3 thou/uL (4.8-10.8)
[2021-08-29 07:15] LABS: Anion Gap 11 mmol/L (10-20); BUN (Urea Nitrogen) 7 mg/dL (8.4-25.7); Calc. Creatinine Clearance 164 mL/min (70-130); Calcium 8.3 mg/dL (7.8-10.44); Carbon Dioxide 27 mmol/L (22-29); Chloride 102 mmol/L (98-107); Glucose 98 mg/dL (70-105); Potassium 3.9 mmol/L (3.5-5.1); Sodium 136 mmol/L (136-145)
[2021-08-29] MEDS: Sodium Chloride 3% (15 ML) NEB NEB SCH ×3 (07:35→22:49)
[2021-08-29] MEDS: Famotidine 40 MG/4 ML VIAL SLOW IVP SCH ×2 (09:27→20:56)
[2021-08-29] MEDS: Cefepime 1 GM in Sodium Chloride 0.9% 100 ML IVPB SCH (09:27)
[2021-08-29] MEDS: Sodium Chloride 0.9% 1,000 ML IV SCH ×2 (09:28→21:19)
[2021-08-29] MEDS: Enoxaparin Sodium 40 MG/0.4 ML SYRINGE SC SCH (09:28)
[2021-08-30] MEDS: Sodium Chloride 3% (15 ML) NEB NEB SCH ×3 (06:52→18:17)
[2021-08-30] MEDS: Enoxaparin Sodium 40 MG/0.4 ML SYRINGE SC SCH (08:38)
[2021-08-30] MEDS: Sodium Chloride 0.9% 1,000 ML IV SCH (08:38)
[2021-08-30] MEDS: Famotidine 40 MG/4 ML VIAL SLOW IVP SCH ×2 (08:38→21:29)
[2021-08-31] MEDS: Sodium Chloride 0.9% 1,000 ML IV SCH ×2 (01:28→13:20)
[2021-08-31] MEDS: Sodium Chloride 3% (15 ML) NEB NEB SCH ×2 (07:41→15:10)
[2021-08-31] MEDS: Famotidine 40 MG/4 ML VIAL SLOW IVP SCH (09:31)
[2021-08-31] MEDS: Enoxaparin Sodium 40 MG/0.4 ML SYRINGE SC SCH (09:31)
[2021-08-31] MEDS: Scopolamine 1.5 mg/72 hour Patch TD SCH (14:01)
[2021-08-31] MEDS: GUAIFENESIN SF SOLN 200 MG/10 ML UDCUP PER TUBE PRN (20:35)
[2021-08-31] MEDS: Famotidine 20 MG TAB PO SCH (20:35)
[2021-09-01] MEDS: Enoxaparin Sodium 40 MG/0.4 ML SYRINGE SC SCH (08:09)
[2021-09-01] MEDS: Famotidine 20 MG TAB PO SCH ×2 (08:10→21:29)
[2021-09-01] MEDS: GUAIFENESIN SF SOLN 200 MG/10 ML UDCUP PER TUBE PRN ×2 (16:02→21:30)
[2021-09-02] MEDS: Enoxaparin Sodium 40 MG/0.4 ML SYRINGE SC SCH (09:22)
[2021-09-02] MEDS: Famotidine 20 MG TAB PO SCH ×2 (09:22→22:29)
[2021-09-02 19:59] VITALS: BP 94/65; TEMP 99.8
[2021-09-02] MEDS ORDERED: Electrolyte Replacement Protocol 1 EACH FS SCH (22:15)
[2021-09-02] MEDS ORDERED: Morphine 4 MG/ML VIAL ONE ×2 (23:35)
[2021-09-02] MEDS ORDERED: Lactated Ringer's 1,000 ML IV SCH (23:45)
[2021-09-02] MEDS ORDERED: Tranexamic Acid 1,000 MG in Sodium Chloride 0.9% 100 ML IVPB SCH (23:45)
[2021-09-02] MEDS ORDERED: Sodium Bicarb 50 MEQ/50 ML Abboject 8.4% SYRINGE ONE (23:52)
[2021-09-02] MEDS ORDERED: EPINEPHrine 1 MG/10 ML Abboject SYRINGE ONE (23:52)
[2021-09-02] MEDS ORDERED: Calcium Chloride 1 GM/10 ML Abboject SYRINGE ONE (23:52)
== END 2021-09-03 00:06 | disposition expired | DRG 374 ==
LOC: IMCU/EMU 11:35 → 2NO 08-11 17:50 → CCU 08-17 10:56 → 2NO 08-17 11:15 → MSONC 08-26 20:22 → CCU 09-02 23:15
PROVIDERS: ADMIT Internal Medicine; ATTEND Internal Medicine
PROC: DDY Radiation Therapy, Gastrointestinal System, Other Radiation (ICD-10-PCS; principal; 2021-08-19)
PROC: 5A12012 Performance of Cardiac Output, Single, Manual (ICD-10-PCS; 2021-09-03)
PROC: 5A1935Z Respiratory Ventilation, Less than 24 Consecutive Hours (ICD-10-PCS; 2021-09-03)
PROC: 0BC18ZZ Extirpation of Matter from Trachea, Via Natural or Artificial Opening Endoscopic (ICD-10-PCS; 2021-09-03)
DX: C15.3 Malignant neoplasm of upper third of esophagus (principal); J69.0 Pneumonitis due to inhalation of food and vomit; J96.01 Acute respiratory failure with hypoxia; J18.9 Pneumonia, unspecified organism; J96.02 Acute respiratory failure with hypercapnia; R64 Cachexia; Z68.1 Body mass index [BMI] 19.9 or less, adult; R04.2 Hemoptysis; E87.1 Hypo-osmolality and hyponatremia; E44.0 Moderate protein-calorie malnutrition; I47.1 Supraventricular tachycardia; I50.22 Chronic systolic (congestive) heart failure; C78.39 Secondary malignant neoplasm of other respiratory organs; J98.11 Atelectasis; J95.03 Malfunction of tracheostomy stoma; Z51.5 Encounter for palliative care; Z20.822 Contact with and (suspected) exposure to COVID-19; I46.8 Cardiac arrest due to other underlying condition; Y83.8 Other surgical procedures as the cause of abnormal reaction of the patient, or of later complication, without mention of misadventure at the time of the procedure; D63.0 Anemia in neoplastic disease; E83.52 Hypercalcemia; R45.1 Restlessness and agitation; R13.12 Dysphagia, oropharyngeal phase; F10.10 Alcohol abuse, uncomplicated; R53.81 Other malaise; F17.210 Nicotine dependence, cigarettes, uncomplicated; R50.9 Fever, unspecified; Z79.899 Other long term (current) drug therapy; Z93.1 Gastrostomy status; Z90.49 Acquired absence of other specified parts of digestive tract; Z78.1 Physical restraint status; Z74.01 Bed confinement status
CPT/HCPCS: 36415; 36416; 71045; 77014; 77280; 77290; 77295; 77300; 77334; 77412; 77417; 80048; 81001; 81003; 83735; 84100; 84145; 84484; 85025; 87040; 93005; 93010; 94640; J0692; J1650; J2270; J3489; J3490; J7030; J7050; J7620; S0028; U0003; U0005